=== PATIENT | female | born 1985 | race Caucasian/White ===

== ENCOUNTER 2017-03-16 21:02 | Emergency (ER) | payer OTHER ==
[2017-03-16 21:28] VITALS: BP 121/83; PULSE 100; TEMP 98.5; BMI 34.3
[2017-03-16 22:02] LABS: URINE APPEARANCE CLEAR; URINE BILIRUBIN NEGATIVE (NEGATIVE); URINE BLOOD 1+ (NEGATIVE); URINE COLOR COLORLESS; URINE GLUCOSE (UA) 3+ (NEGATIVE); URINE KETONE NEGATIVE (NEGATIVE); URINE NITRITE NEGATIVE (NEGATIVE); URINE PROTEIN NEGATIVE (NEGATIVE); URINE UROBILINOGEN NEGATIVE mg/dL (0.2-1.0)
[2017-03-16 22:04] LABS: URINE LEUK ESTERASE 2+ (NEGATIVE)
[2017-03-16 22:08] LABS: URINE BACTERIA FEW /hpf (NONE SEEN); URINE MUCUS RARE; URINE RBC 3 /hpf (0-3); URINE WBC 6 /hpf (3-5)
[2017-03-16] MEDS ORDERED: KETOROLAC TROMETHAMINE 30 MG/1 ML VIAL IVPUSH ONE (22:37)
[2017-03-16] MEDS ORDERED: KETOROLAC TROMETHAMINE 30 MG/1 ML VIAL ONE (23:15)
--- NOTE | 2017-03-16 23:30 | PDOC ---
History of Present Illness - General History Source: Patient Exam Limitations: No Limitations - History of Present Illness Initial Comments: 03/16/17 23:30 The patient is a 31 year old female, with a significant past medical history of diabetes mellitus, who presents to the emergency department complaining of lower abdominal pain and vaginal pruritus for approx. one week and dysuria beginning approx. 5 days ago. The patient reports the vaginal pruritus has been progressively worse. She states she purchased a cream from the pharmacy (unable to provide medication name) for self treatment of the vaginal pruritus with no relief. The patient reports her last menstrual period was the first week of February and she is currently late. She reports she is sexually active with her of four years and does not use contraceptives. The patient reports she has not been compliant with her diabetes medications. She denies recent fevers, chills, headache or dizziness. She denies recent nausea, vomit, diarrhea or constipation. She denies recent chest pain or shortness of breath. Allergies: NKA Primary Care Physician: Dr. Jaida Hutchins at [facility] P[facility]MASTER: Dr. [place] <Baldev Robles - Last Filed: 03/16/17 23:36> <Diallo Fortune - Last Filed: 03/17/17 00:07> - General Chief Complaint: Vaginal Sxs Stated Complaint: VAGINAL ISSUES Time Seen by Provider: 03/16/17 21:35 Past History <Baldev Robles - Last Filed: 03/16/17 23:36> - Past Medical History Diabetes: Yes - Surgical History Appendectomy: Yes - Psycho/Social/Smoking Cessation Hx Anxiety: No Suicidal Ideation: No Smoking History: Never smoked Have you smoked in the past 12 months: No Information on smoking cessation initiated: No Hx Alcohol Use: No Drug/Substance Use Hx: No Substance Use Type: None <Diallo Fortune - Last Filed: 03/17/17 00:07> - Past Medical History Allergies/Adverse Reactions: Allergies Allergy/AdvReac Type Severity Reaction Status Date / Time No Known Allergies Allergy Verified 03/16/17 21:28 Home Medications: Ambulatory Orders Miconazole/Cleanser 17 On Wipe [Monistat 7 Combination Pack] 1 each VG DAILY #1 kit 03/17/17 Review of Systems - Review of Systems Comments:: 03/16/17 23:30 CONSTITUTIONAL: No fever, no chills, no fatigue EYES: No visual changes ENT: No ear pain, no sore throat CARDIOVASCULAR: No chest pain, no palpitations RESPIRATORY: No cough, no SOB GI:+Lower abdominal pain. No nausea, no vomiting, no constipation, no diarrhea GENITOURINARY: +Dysuria. +Vaginal itchiness. No hematuria MUSKULOSKELETAL: No backpain, no joint pain, no myalgias SKIN: No rash NEURO: No headache <Baldev Robles - Last Filed: 03/16/17 23:36> *Physical Exam - Vital Signs Last Vital Signs Temp Pulse Resp BP Pulse Ox 98.5 F 100 H 18 121/83 100 03/16/17 21:25 03/16/17 21:25 03/16/17 21:25 03/16/17 21:25 03/16/17 21:25 <Baldev Robles - Last Filed: 03/16/17 23:36> - Vital Signs Last Vital Signs Temp Pulse Resp BP Pulse Ox 98.5 F 100 H 18 121/83 100 03/16/17 21:25 03/16/17 21:25 03/16/17 21:25 03/16/17 21:25 03/16/17 21:25 - Physical Exam Comments: 03/17/17 00:05 EXAMINATION CONSTITUTIONAL: Well-appearing; well-nourished; in no apparent distress HEAD: Normocephalic; atraumatic EYES: PERRL; EOM intact ENMT: External appears normal; normal oropharynx NECK: Supple; non-tender; no cervical lymphadenopathy CARD: Normal S1, S2; no murmurs, rubs, or gallops RESP: Normal chest excursion with respiration; breath sounds clear and equal bilaterally; no wheezes, rhonchi, or rales ABD: Soft, non-distended; non-tender; no palpable organomegaly, no palpable hernias PE: + Numerous excoriated fissure-like lesions to the labia minora and majora; + large amount of white discharge in the vaginal vault consistent with vaginal candidiasis; no CMT; EXT: Normal ROM in all four extremities; non-tender to palpation; distal pulses intact SKIN: Warm, dry, no rash NEURO: No focal neurological deficiencies. <Diallo Fortune - Last Filed: 03/17/17 00:07> ED Treatment Course - ADDITIONAL ORDERS Additional order review: Laboratory Results 03/16/17 21:47 Urine Color Colorless Urine Appearance Clear Urine pH 5.0 Urine Protein Negative Urine Glucose (UA) 3+ H Urine Ketones Negative Urine Blood 1+ H Urine Nitrite Negative Urine Bilirubin Negative Urine Urobilinogen Negative Ur Leukocyte Esterase 2+ H Urine RBC 3 Urine WBC 6 Ur Epithelial Cells Rare Urine Bacteria Few Urine Mucus Rare Urine HCG, Qual Negative - Medications Given in the ED: ED Medications Discontinued Medications Generic Name Dose Route Start Last Admin Trade Name Freq PRN Reason Stop Dose Admin Ketorolac Tromethamine 30 mg 03/16/17 22:37 03/16/17 23:28 Toradol Injection - IVPUSH 03/16/17 22:38 30 mg ONCE ONE Administration <Baldev Robles - Last Filed: 03/16/17 23:36> - ADDITIONAL ORDERS Additional order review: Laboratory Results 03/16/17 21:47 Urine Color Colorless Urine Appearance Clear Urine pH 5.0 Urine Protein Negative Urine Glucose (UA) 3+ H Urine Ketones Negative Urine Blood 1+ H Urine Nitrite Negative Urine Bilirubin Negative Urine Urobilinogen Negative Ur Leukocyte Esterase 2+ H Urine RBC 3 Urine WBC 6 Ur Epithelial Cells Rare Urine Bacteria Few Urine Mucus Rare Urine HCG, Qual Negative - Medications Given in the ED: ED Medications Discontinued Medications Generic Name Dose Route Start Last Admin Trade Name Freq PRN Reason Stop Dose Admin Ketorolac Tromethamine 30 mg 03/16/17 22:37 03/16/17 23:28 Toradol Injection - IVPUSH 03/16/17 22:38 30 mg ONCE ONE Administration <Diallo Fortune - Last Filed: 03/17/17 00:07> Medical Decision Making - Medical Decision Making 03/17/17 00:07 Patient is well-appearing 31-year-old female who presents with signs and symptoms of acute vaginal candidiasis. Vaginal herpes is a lot less likely. Serial abdominal exams reveal no focal tenderness, patient tolerates by mouth. We'll administer Toradol for symptomatic relief of lower abdominal cramping. Will discharge with Monistat with outpatient follow-up. <Diallo Fortune - Last Filed: 03/17/17 00:07> *DC/Admit/Observation/Transfer - Attestations Scribe Attestion: 03/16/17 23:31 Documentation prepared by Baldev Robles, acting as medical secretary receptionist for Diallo Fortune MD. <Baldev Robles - Last Filed: 03/16/17 23:36> - Attestations Physician Attestion: 03/17/17 00:05 The documentation was prepared by the scribe under my direct supervision. I have reviewed the documentation which correctly represents the findings, medical decision-making and critical action taken by me. <Diallo Fortune - Last Filed: 03/17/17 00:07> Diagnosis at time of Disposition: Vaginal candidiasis - Discharge Dispostion Disposition: HOME Condition at time of disposition: Stable - Prescriptions Prescriptions: Miconazole/Cleanser 17 On Wipe [Monistat 7 Combination Pack] 1 each VG DAILY #1 kit - Referrals Referrals: STAFF,NOT ON [Primary Care Provider] - [facility] [Provider Group] - Patient Instructions Printed Discharge Instructions: DI for Vaginal Yeast Infection
== END 2017-03-17 00:45 | disposition home or self-care (01) ==
LOC: SUPCPDRO 21:02 → JER 21:02
PROC: 3E0333Z Introduction of Anti-inflammatory into Peripheral Vein, Percutaneous Approach (ICD-10-PCS; principal; 2017-03-16)
DX: B37.3 Candidiasis of vulva and vagina (principal)
CPT/HCPCS: 81003; 81015; 84703; 87086; 87186; 99282-25

== ENCOUNTER 2017-08-10 03:34 | Emergency (ER) | payer OTHER ==
[2017-08-10 04:16] VITALS: BMI 29.2
[2017-08-10] MEDS ORDERED: SODIUM CHLORIDE 1,000 ML IV STA (04:34)
[2017-08-10] MEDS ORDERED: ONDANSETRON 4 MG/2 ML VIAL IVPB ONE (04:34)
[2017-08-10] MEDS ORDERED: morphine CARPU-JECT 4 MG/1 ML DISP.SYRIN IVPUSH ONE (04:34)
--- NOTE | 2017-08-10 04:43 | PDOC ---
History of Present Illness - History of Present Illness Initial Comments: 08/10/17 05:01 The patient is a 32 year old female, with a significant past medical history of diabetes mellitus, obesity, who presents to the emergency department with, approx. 2 days of diffuse abdominal pain. The patient reports the diffuse abdominal pain as intermittent and reports associated diarrhea and vomiting. The patient reports taking Tylenol for the diffuse abdominal pain with mild relief. The patient reports the diffuse abdominal pain has been progressively getting worse up until arrival. She denies recent fevers, chills, headache or dizziness. She denies recent constipation. She denies recent dysuria, frequency, urgency or hematuria. She denies recent chest pain or shortness of breath. Allergies: NKA Past surgical history: Gastric Bypass Social history: Nonsmoker. Denies EtOH use and recreational drug use. Primary Care Physician: Dr. Ginger Hutchins <Baldev Robles - Last Filed: 08/10/17 05:00> - General History Source: Patient, Old Records Exam Limitations: No Limitations <Stan Aguila - Last Filed: 08/10/17 06:56> - General Chief Complaint: Nausea/Vomiting Stated Complaint: STOMACH PAIN Time Seen by Provider: 08/10/17 04:33 Past History <Baldev Robles - Last Filed: 08/10/17 05:00> - Past Medical History COPD: No Diabetes: Yes - Surgical History Appendectomy: Yes - Reproductive History Therapeutic (s) & number: No - Suicide/Smoking/Psychosocial Hx Smoking History: Never smoked Have you smoked in the past 12 months: No Hx Alcohol Use: No Drug/Substance Use Hx: No Substance Use Type: None <Stan Aguila - Last Filed: 08/10/17 06:56> - Past Medical History Allergies/Adverse Reactions: Allergies Allergy/AdvReac Type Severity Reaction Status Date / Time No Known Allergies Allergy Verified 03/16/17 21:28 Home Medications: Ambulatory Orders Acetaminophen [Tylenol] 650 mg PO PRN 03/17/17 Canagliflozin [Invokana] 100 mg PO DAILY 08/10/17 Lisinopril 10 mg PO DAILY 08/10/17 Metformin HCl [Glucophage] 1,000 mg PO DAILY 08/10/17 Review of Systems - Review of Systems Comments:: 08/10/17 05:05 GENERAL/CONSTITUTIONAL: No fever or chills. No weakness. HEAD, EYES, EARS, NOSE AND THROAT: No change in vision. No ear pain or discharge. No sore throat. CARDIOVASCULAR: No chest pain or shortness of breath. RESPIRATORY: No cough, wheezing, or hemoptysis. GASTROINTESTINAL: +Diffuse abdominal pain. +Nausea. +Vomiting. +Diarrhea. GENITOURINARY: No dysuria, frequency, or change in urination. MUSCULOSKELETAL: No joint or muscle swelling or pain. No neck or back pain. SKIN: No rash NEUROLOGIC: No headache, vertigo, loss of consciousness, or change in strength/ sensation. ENDOCRINE: No increased thirst. No abnormal weight change. HEMATOLOGIC/LYMPHATIC: No anemia, easy bleeding, or history of blood clots. ALLERGIC/IMMUNOLOGIC: No hives or skin allergy. <Baldev Robles - Last Filed: 08/10/17 05:00> *Physical Exam - Vital Signs Last Vital Signs Temp Pulse Resp BP Pulse Ox 98.2 F 76 19 138/85 99 08/10/17 03:54 08/10/17 03:54 08/10/17 03:54 08/10/17 03:54 08/10/17 03:54 - Physical Exam Comments: 08/10/17 05:06 GENERAL: Awake, alert, and fully oriented, in no acute distress HEAD: No signs of trauma EYES: PERRLA, EOMI, sclera anicteric, conjunctiva clear ENT: Auricles normal inspection, hearing grossly normal, nares patent, oropharynx clear without exudates. Moist mucosa NECK: Normal ROM, supple, no lymphadenopathy, JVD, or masses LUNGS: Breath sounds equal, clear to auscultation bilaterally. No wheezes, and no crackles HEART: Regular rate and rhythm, normal S1 and S2, no murmurs, rubs or gallops ABDOMEN: +Diffusely tender but worse at the epigastric region. Soft, normoactive bowel sounds. No guarding, no rebound. No masses EXTREMITIES: Normal range of motion, no edema. No clubbing or cyanosis. No cords, erythema, or tenderness NEUROLOGICAL: Cranial nerves II through XII grossly intact. Normal speech, normal gait SKIN: Warm, Dry, normal turgor, no rashes or lesions noted. <Baldev Robles - Shivam Filed: 08/10/17 05:00> - Vital Signs Last Vital Signs Temp Pulse Resp BP Pulse Ox 98.2 F 76 19 138/85 99 08/10/17 03:54 08/10/17 03:54 08/10/17 03:54 08/10/17 03:54 08/10/17 03:54 <AylaStan - Last Filed: 08/10/17 06:56> ED Treatment Course - LABORATORY CBC & Chemistry Diagram: 08/10/17 04:48 08/10/17 04:48 - RADIOLOGY Radiology Studies Ordered: Category Date Time Status ABDOMEN & PELVIS CT WITH CONTR [CT] Stat CT Scan 08/10/17 04:34 Ordered <Stan Aguila - Last Filed: 08/10/17 06:56> Medical Decision Making - Medical Decision Making 08/10/17 04:43 A portion of this note was documented by scribe services under my direction. I have reviewed the details of the note, within reason, and agree with the documentation with the following case summary and management plan written by me. Patient treated in the ED. Nursing notes are reviewed and incorporated into the medical decision-making. Vital signs reviewed. Peripheral IV access obtained by the nurse, laboratory studies are drawn and sent, reviewed and interpreted by myself. Vital Signs Temp Pulse Resp BP Pulse Ox 98.2 F 76 19 138/85 99 08/10/17 03:54 08/10/17 03:54 08/10/17 03:54 08/10/17 03:54 08/10/17 03:54 32-year-old female with past medical history of diabetes, obesity, gastric bypass approximately 3 weeks ago at [facility] presents with diffuse abdominal pain for 2 days. Patient started developing epigastric abdominal discomfort that was intermittent and associated with diarrhea and vomiting. Diarrhea resolved but the nausea persisted. States that her pain is progressively worsening despite taking Tylenol and codeine. Denies fevers or chills but stated the pain was worsening and came to the ED. Given her history of gastric bypass, we'll need to rule out complications. Within differential is gastroenteritis, pancreatitis, cholecystitis. We'll obtain labs and a CAT scan and reassess. 08/10/17 06:32 CBC, BMP 08/10/17 04:48 08/10/17 04:48 CMP Sodium 139 mmol/L (136-145) 08/10/17 04:48 Potassium 4.0 mmol/L (3.5-5.1) 08/10/17 04:48 Chloride 106 mmol/L (98-107) 08/10/17 04:48 Carbon Dioxide 22 mmol/L (21-32) 08/10/17 04:48 Anion Gap 11 (8-16) 08/10/17 04:48 BUN 14 mg/dL (7-18) 08/10/17 04:48 Creatinine 0.6 mg/dL (0.55-1.02) 08/10/17 04:48 Creat Clearance w eGFR > 60 (>60) 08/10/17 04:48 Random Glucose 157 mg/dL (74-106) H 08/10/17 04:48 Calcium 9.2 mg/dL (8.5-10.1) 08/10/17 04:48 Phosphorus 4.8 mg/dL (2.5-4.9) 08/10/17 04:48 Magnesium 2.1 mg/dL (1.8-2.4) 08/10/17 04:48 Total Bilirubin 0.2 mg/dL (0.2-1.0) 08/10/17 04:48 AST 18 U/L (15-37) 08/10/17 04:48 ALT 34 U/L (12-78) 08/10/17 04:48 Alkaline Phosphatase 113 U/L (45-117) 08/10/17 04:48 Total Protein 7.6 g/dl (6.4-8.2) 08/10/17 04:48 Albumin 3.8 g/dl (3.4-5.0) 08/10/17 04:48 Lipase 144 U/L (73-393) 08/10/17 04:48 Serum , Qual Negative 08/10/17 04:48 Urine Test Results Urine Color Yellow 08/10/17 05:00 Urine Appearance Slcloudy 08/10/17 05:00 Urine pH 5.0 (5.0-8.0) 08/10/17 05:00 Ur Specific [place] 1.038 (1.001-1.035) H 08/10/17 05:00 Urine Protein 2+ (NEGATIVE) H 08/10/17 05:00 Urine Glucose (UA) 3+ (NEGATIVE) H 08/10/17 05:00 Urine Ketones Trace (NEGATIVE) H 08/10/17 05:00 Urine Blood Negative (NEGATIVE) 08/10/17 05:00 Urine Nitrite Positive (NEGATIVE) 08/10/17 05:00 Urine Bilirubin Negative (NEGATIVE) 08/10/17 05:00 Ur Leukocyte Esterase Negative (NEGATIVE) 08/10/17 05:00 Ur Epithelial Cells Many /HPF (FEW) 08/10/17 05:00 Urine Bacteria Rare /hpf (NONE SEEN) 08/10/17 05:00 Urine Mucus Rare 08/10/17 05:00 Labs reviewed. Demonstrated to have a UTI. Microbiology reviewed. Will give ceftriaxone. 08/10/17 06:56 Case signed out to Dr. Lin for further management and disposition. <Stan Aguila - Last Filed: 08/10/17 06:56> *DC/Admit/Observation/Transfer - Attestations Scribe Attestion: 08/10/17 05:07 Documentation prepared by Baldev Robles, acting as medical biller for Stan Aguila MD. <Baldev Robles - Last Filed: 08/10/17 05:00>
[2017-08-10] MEDS ORDERED: MORPHINE SULFATE 10 MG/1 ML *VIAL ONE (04:54)
[2017-08-10] MEDS ORDERED: ONDANSETRON 4 MG/2 ML VIAL ONE (04:56)
[2017-08-10 05:19] LABS: BASO % 0.5 % (0-2.0); EOS % 3.6 % (0-4.5); HEMATOCRIT 42.7 % (32.4-45.2); HEMOGLOBIN 13.6 GM/dL (10.7-15.3); LYMPH % 26.3 % (8-40); MCH 24.4 pg (25.7-33.7); MEAN CELL VOLUME 76.2 fl (80-96); MEAN PLT VOLUME 10.9 fl (7.5-11.1); MONO % 5.5 % (3.8-10.2); NEUT % 64.1 % (42.8-82.8); PLATELET COUNT 314 K/MM3 (134-434); RDW 14.3 % (11.6-15.6); WHITE BLOOD COUNT 10.2 K/mm3 (4.0-10.0)
[2017-08-10 05:21] LABS: URINE APPEARANCE SLCLOUDY; URINE BILIRUBIN NEGATIVE (NEGATIVE); URINE BLOOD NEGATIVE (NEGATIVE); URINE COLOR YELLOW; URINE GLUCOSE (UA) 3+ (NEGATIVE); URINE KETONE TRACE (NEGATIVE); URINE LEUK ESTERASE NEGATIVE (NEGATIVE); URINE NITRITE POSITIVE (NEGATIVE); URINE UROBILINOGEN NEGATIVE mg/dL (0.2-1.0)
[2017-08-10 05:23] LABS: URINE PROTEIN 2+ (NEGATIVE)
[2017-08-10 05:24] LABS: EPI CELLS MANY /HPF (FEW); URINE BACTERIA RARE /hpf (NONE SEEN); URINE MUCUS RARE
[2017-08-10 05:42] LABS: ALBUMIN 3.8 g/dl (3.4-5.0); ALK PHOS 113 U/L (45-117); ANION GAP 11 (8-16); BILIRUBIN,TOTAL 0.2 mg/dL (0.2-1.0); BLOOD UREA NITROGEN 14 mg/dL (7-18); CALCIUM 9.2 mg/dL (8.5-10.1); CHLORIDE 106 mmol/L (98-107); CO2 22 mmol/L (21-32); CREATININE 0.6 mg/dL (0.55-1.02); GLUCOSE,RANDOM 157 mg/dL (74-106); LIPASE 144 U/L (73-393); PHOSPHOROUS 4.8 mg/dL (2.5-4.9); SGPT/ALT 34 U/L (12-78); SODIUM 139 mmol/L (136-145); TOT PROT 7.6 g/dl (6.4-8.2)
[2017-08-10 05:47] LABS: MAGNESIUM 2.1 mg/dL (1.8-2.4); SGOT/AST 18 U/L (15-37)
[2017-08-10] MEDS ORDERED: CEFTRIAXONE 1 GM in DEXTROSE 5%-WATER - 50 ML IVPB ONE (06:34)
[2017-08-10] MEDS ORDERED: CEFTRIAXONE 1 GM/50 ML BAG ONE (06:39)
[2017-08-10 07:33] VITALS: TEMP 98.4
--- NOTE | 2017-08-10 10:07 | PDOC ---
*Physical Exam - Vital Signs Last Vital Signs Temp Pulse Resp BP Pulse Ox 98.4 F 60 18 118/66 99 08/10/17 07:29 08/10/17 07:29 08/10/17 07:29 08/10/17 07:29 08/10/17 07:29 - Physical Exam Comments: 08/10/17 10:02 "GENERAL: Awake, alert, and fully oriented, in no acute distress HEAD: No signs of trauma EYES: PERRLA, EOMI, sclera anicteric, conjunctiva clear ENT: Auricles normal inspection, hearing grossly normal, nares patent, oropharynx clear without exudates. Moist mucosa NECK: Nontender, no stepoffs, Normal ROM, supple, no lymphadenopathy, JVD, or masses LUNGS: Breath sounds equal, clear to auscultation bilaterally. No wheezes, and no crackles HEART: Regular rate and rhythm, normal S1 and S2, no murmurs, rubs or gallops ABDOMEN: Soft, nontender, normoactive bowel sounds. No guarding, no rebound. No masses EXTREMITIES: Normal range of motion, no edema. No clubbing or cyanosis. No cords, erythema, or tenderness NEUROLOGICAL: Cranial nerves II through XII intact. 5/5 strength and sensation in all extremities, Normal speech, normal gait SKIN: Warm, Dry, normal turgor, no rashes or lesions noted. " ED Treatment Course - LABORATORY CBC & Chemistry Diagram: 08/10/17 04:48 08/10/17 04:48 - ADDITIONAL ORDERS Additional order review: Laboratory Results 08/10/17 08/10/17 08/10/17 05:00 04:48 04:48 Sodium 139 Potassium 4.0 Chloride 106 Carbon Dioxide 22 Anion Gap 11 BUN 14 Creatinine 0.6 Creat Clearance w eGFR > 60 Random Glucose 157 H Calcium 9.2 Phosphorus 4.8 Magnesium 2.1 Total Bilirubin 0.2 AST 18 ALT 34 Alkaline Phosphatase 113 Total Protein 7.6 Albumin 3.8 Lipase 144 Serum , Qual Negative Urine Color Yellow Urine Appearance Slcloudy Urine pH 5.0 Ur Specific [place] 1.038 H Urine Protein 2+ H Urine Glucose (UA) 3+ H Urine Ketones Trace H Urine Blood Negative Urine Nitrite Positive Urine Bilirubin Negative Urine Urobilinogen Negative Ur Leukocyte Esterase Negative Urine WBC (Auto) 12 Urine RBC (Auto) 6 Ur Epithelial Cells Many Urine Bacteria Rare Urine Mucus Rare 02/02/18 04:48 RBC 5.60 H MCV 76.2 L MCHC 32.0 RDW 14.3 MPV 10.9 Neutrophils % 64.1 Lymphocytes % 26.3 Monocytes % 5.5 Eosinophils % 3.6 Basophils % 0.5 - Medications Given in the ED: ED Medications Discontinued Medications Generic Name Dose Route Start Last Admin Trade Name Freq PRN Reason Stop Dose Admin Sodium Chloride 1,000 mls @ 1,000 mls/hr 08/10/17 04:34 08/10/17 05:06 Normal Saline - IV 08/10/17 05:33 1,000 mls/hr ASDIR STA Administration Ceftriaxone Sodium 1 gm/ 50 mls @ 100 mls/hr 08/10/17 06:34 08/10/17 06:42 Dextrose IVPB 08/10/17 07:03 100 mls/hr ONCE ONE Administration Morphine Sulfate 4 mg 08/10/17 04:34 08/10/17 05:06 Morphine Injection - IVPUSH 08/10/17 04:35 4 mg ONCE ONE Administration Ondansetron HCl 4 mg 08/10/17 04:34 08/10/17 05:06 Zofran Injection IVPB 08/10/17 04:35 4 mg ONCE ONE Administration Medical Decision Making - Medical Decision Making 08/10/17 10:02 Sign out taken from Dr. Aguila at 7am. 32 F with recent gastric bypass 07/18/17, presenting with abdominal pain. CT shows no acute pathology. Pt reassessed - feels somewhat better, tolerating PO. Abdomen with minimal periumbilical tenderness. pt is well appearing, vitals normal, clinically stable for DC. I discussed the physical exam findings, ancillary test results and final diagnoses with the patient. I answered all of the patient's questions. The patient was satisfied with the care received and felt comfortable with the discharge plan and treatment plan. The patient agrees to follow up with the primary care physician within 24-72 hours. *DC/Admit/Observation/Transfer Diagnosis at time of Disposition: Abdominal pain - Discharge Dispostion Disposition: HOME - Prescriptions Prescriptions: Acetaminophen W/ Codeine Liq [Tylenol .W/Codeine Oral Solution -] 5 ml PO Q4H PRN #120 ml MDD 30 ml PRN Reason: Pain - Referrals - Patient Instructions Printed Discharge Instructions: DI for Abdominal Pain-Adult Additional Instructions: Call your surgeon today to make a follow up appointment within 1 week. If you experience worsening pain, fevers, vomiting, or any other concerning symptoms, return to the ER immediately. - Post Discharge Activity - Attestations Physician Attestion: 08/10/17 10:04 I, Dr. Garth Lin MD, attest that this document has been prepared under my direction and personally reviewed by me in its entirety. I further attest, that it accurately reflects all work, treatment, procedures and medical decision -making performed by me.
[2017-08-10] MEDS ORDERED: ACETAMINOPHEN W/ CODEINE LIQ 5 ML CUP PO ONE (10:28)
[2017-08-10] MEDS ORDERED: ACETAMINOPHEN W/ CODEINE LIQ 5 ML CUP ONE (10:30)
[2017-08-10 10:36] VITALS: BP 120/56; PULSE 62
--- NOTE | 2017-08-12 08:27 | PDOC ---
Patient Follow-up (Call Back) - Post ED Follow - Up Disposition at time of original discharge: HOME Reason for Call Back: Abnwl. Microbiology (Urine culture on preliminary results with non-lactose fermenting GNB. Patient was given a dose of IV ceftriaxone in the ER on the second. Patient with positive UA and is a diabetic. Left message for patient to call back to start antibiotics.)
--- NOTE | 2017-08-13 09:47 | PDOC ---
Patient Follow-up (Call Back) - Post ED Follow - Up Disposition at time of original discharge: HOME Reason for Call Back: Abnwl. Microbiology (+urine culture. Spoke with patient. Sending rx for macrobid)
== END 2017-08-10 10:36 | disposition home or self-care (01) ==
LOC: JER 03:34
PROC: 3E03329 Introduction of Other Anti-infective into Peripheral Vein, Percutaneous Approach (ICD-10-PCS; principal; 2017-08-10)
PROC: 3E033NZ Introduction of Analgesics, Hypnotics, Sedatives into Peripheral Vein, Percutaneous Approach (ICD-10-PCS; 2017-08-10)
PROC: 3E033GC Introduction of Other Therapeutic Substance into Peripheral Vein, Percutaneous Approach (ICD-10-PCS; 2017-08-10)
PROC: 3E0337Z Introduction of Electrolytic and Water Balance Substance into Peripheral Vein, Percutaneous Approach (ICD-10-PCS; 2017-08-10)
DX: R10.84 Generalized abdominal pain (principal)
CPT/HCPCS: 36415; 74177-TC; 80053; 81003; 81015; 83690; 83735; 84100; 84703; 85025; 87086; 87186; 96361; 96365; 96375; 99285-25

== ENCOUNTER 2018-08-19 14:43 | Emergency (ER) | payer OTHER ==
[2018-08-19 15:17] VITALS: BMI 26.6
[2018-08-19] MEDS ORDERED: ACETAMINOPHEN 325 MG TABLET (FP) PO ONE (15:18)
[2018-08-19] MEDS ORDERED: METOCLOPRAMIDE HCL INJECTION 10 MG/2 ML VIAL IVPB ONE (15:18)
[2018-08-19] MEDS ORDERED: SODIUM CHLORIDE 1,000 ML IV STA (15:18)
--- NOTE | 2018-08-19 15:18 | PDOC ---
Rapid Medical Evaluation Medical Evaluation: Allergies Allergy/AdvReac Type Severity Reaction Status Date / Time No Known Allergies Allergy Verified 03/16/17 21:28 I have performed a brief in-person evaluation of this patient. The patient presents with a chief complaint of: Hx of DMl C/o headache x 2 days along with body aches, has been taking Tylenol without relief of sxs; +emesis as well; denies URI sxs, congestion, fever; mentions has been having HAs x 5 months but has not had them evaluated; noise makes CORRALES worse Pertinent physical exam findings: In NAD, no gross focal deficits I have ordered the following: Tylenol, Reglan, IVF, UCG The patient will proceed to the ED for further evaluation. 08/19/18 15:12
[2018-08-19] MEDS ORDERED: ACETAMINOPHEN 325 MG TABLET (FP) ONE (15:27)
--- NOTE | 2018-08-19 17:04 | PDOC ---
History of Present Illness - General Chief Complaint: Headache Stated Complaint: COLD SYMPTOMS Time Seen by Provider: 08/19/18 15:12 History Source: Patient Exam Limitations: No Limitations - History of Present Illness Initial Comments: 08/19/18 16:56 Patient is a 33F with history of migraines, DM, gastric bypass here today complaining of headache for the past two days. Patient states that she has been struggling with headaches for the past 5 months. She had a workup for headaches in the distant past for headaches and was told she had migraines. Patient describes her headache as a pain around her right eye and right aspect of her head. It onset insidiously. Denies fevers, chills, endorses nausea, vomiting. Denies neck stiffness. Patient states that she feels a little short of breath and overall week. Denies leg pain, leg swelling. Patient gives vague history of anemia. Past History - Past Medical History Allergies/Adverse Reactions: Allergies Allergy/AdvReac Type Severity Reaction Status Date / Time No Known Allergies Allergy Verified 03/16/17 21:28 Home Medications: Ambulatory Orders Acetaminophen [Tylenol] 650 mg PO PRN 03/17/17 Acetaminophen W/ Codeine Liq [Tylenol .W/Codeine Oral Solution -] 5 ml PO Q4H PRN #120 ml MDD 30 ml 08/10/17 Canagliflozin [Invokana] 100 mg PO DAILY 08/10/17 Lisinopril 10 mg PO DAILY 08/10/17 Metformin HCl [Glucophage] 1,000 mg PO DAILY 08/10/17 Nitrofurantoin Monohyd/M-Cryst [Macrobid -] 100 mg PO BID #14 capsule 08/13/17 COPD: No Diabetes: Yes - Surgical History Appendectomy: Yes - Reproductive History Therapeutic (s) & number: No - Immunization History Immunization Up to Date: No - Suicide/Smoking/Psychosocial Hx Smoking History: Never smoked Have you smoked in the past 12 months: No Information on smoking cessation initiated: No Hx Alcohol Use: No Drug/Substance Use Hx: No Substance Use Type: None Review of Systems - Review of Systems Comments:: 08/19/18 17:04 GENERAL/CONSTITUTIONAL: No fever or chills. No weakness. HEAD, EYES, EARS, NOSE AND THROAT: No change in vision. No sore throat. CARDIOVASCULAR: No chest pain or shortness of breath RESPIRATORY: No cough, wheezing, or hemoptysis. GASTROINTESTINAL: +nausea, +vomiting, no diarrhea or constipation. GENITOURINARY: No dysuria, frequency, or change in urination. MUSCULOSKELETAL: No joint or muscle swelling or pain. No neck or back pain. SKIN: No rash NEUROLOGIC: +headache, no vertigo, loss of consciousness, or change in strength/ sensation. ENDOCRINE: No increased thirst. No abnormal weight change HEMATOLOGIC/LYMPHATIC: No anemia, easy bleeding, or history of blood clots. ALLERGIC/IMMUNOLOGIC: No hives or skin allergy. *Physical Exam - Vital Signs Last Vital Signs Temp Pulse Resp BP Pulse Ox 98.1 F 93 H 18 124/80 97 08/19/18 15:14 08/19/18 15:14 08/19/18 15:14 08/19/18 15:14 08/19/18 15:14 - Physical Exam Comments: 08/19/18 17:06 GENERAL: Awake, alert, and fully oriented, in no acute distress HEAD: No signs of trauma, normocephalic, atraumatic EYES: PERRLA, EOMI, sclera anicteric, conjunctiva clear ENT: Auricles normal inspection, hearing grossly normal, nares patent, oropharynx clear without exudates. Moist mucosa NECK: Normal ROM, supple, no lymphadenopathy, JVD, or masses LUNGS: No distress, speaks full sentences, clear to auscultation bilaterally HEART: Regular rate and rhythm, normal S1 and S2, no murmurs, rubs or gallops, peripheral pulses normal and equal bilaterally. ABDOMEN: Soft, nontender, normoactive bowel sounds. No guarding, no rebound. No masses EXTREMITIES: Normal inspection, Normal range of motion, no edema. No clubbing or cyanosis. NEUROLOGICAL: Cranial nerves II through XII grossly intact. Normal speech, normal gait, no focal sensorimotor deficits SKIN: Warm, Dry, normal turgor, no rashes or lesions noted. Moderate Sedation - Procedure Monitoring Vital Signs: Procedure Monitoring Vital Signs Temperature 98.1 F 08/19/18 15:14 Pulse Rate 93 H 08/19/18 15:14 Respiratory Rate 18 08/19/18 15:14 Blood Pressure 124/80 08/19/18 15:14 O2 Sat by Pulse Oximetry (%) 97 08/19/18 15:14 ED Treatment Course - LABORATORY CBC & Chemistry Diagram: 08/19/18 17:19 08/19/18 17:19 - ADDITIONAL ORDERS Additional order review: Laboratory Results 08/19/18 15:36 Urine HCG, Qual Negative - Medications Given in the ED: ED Medications Discontinued Medications Generic Name Dose Route Start Last Admin Trade Name Jaswant PRN Reason Stop Dose Admin Acetaminophen 650 mg 08/19/18 15:18 08/19/18 15:31 Tylenol - PO 08/19/18 15:19 650 mg ONCE ONE Administration Medical Decision Making - Medical Decision Making 08/19/18 17:06 Patient is 33F with history of DM, sleeve, migraines here today with headache. Vitals normal and stable. Patient appears well clinically. Will treat with reglan, fluids and tylenol. Patient reports history of anemia, will do basic labs. Do not suspect bleed or mass given history and exam. Likely discharge, follow up with neurology. 08/19/18 18:25 CBC, CMP reassuring. Headache improved. Will discharge with neuro follow up. *DC/Admit/Observation/Transfer Diagnosis at time of Disposition: Migraine headache - Discharge Dispostion Disposition: HOME Condition at time of disposition: Good Decision to Admit order: No - Referrals Referrals: ON STAFF,NOT [Primary Care Provider] - Price Kong MD [Staff Physician] - - Patient Instructions Printed Discharge Instructions: DI for Migraine Additional Instructions: Please start using a diary to keep track of your headaches. Please return if you have any new, worsening or concerning symptoms, especially fever and increasing pain. Please follow up with your PCP and the neurologist below. - Post Discharge Activity Forms/Work/School Notes: Back to Work
[2018-08-19] MEDS ORDERED: METOCLOPRAMIDE HCL INJECTION 10 MG/2 ML VIAL ONE (17:14)
[2018-08-19 17:43] LABS: HEMATOCRIT 32.8 % (32.4-45.2); HEMOGLOBIN 10.3 GM/dL (10.7-15.3); MCHC 31.4 g/dl (32.0-36.0); MEAN CELL VOLUME 59.6 fl (80-96); MEAN PLT VOLUME 9.1 fl (7.5-11.1); PLATELET COUNT 394 K/MM3 (134-434); RBC 5.49 M/mm3 (3.60-5.2); RDW 18.2 % (11.6-15.6); WHITE BLOOD COUNT 12.3 K/mm3 (4.0-10.0)
[2018-08-19 18:04] LABS: MCH 18.7 pg (25.7-33.7)
--- NOTE | 2018-08-19 18:09 | PDOC ---
Attending Attestation - HPI HPI: 08/19/18 18:10 The patient is a 33 year old female with a past medical history of diabetes, gastric bypass (13 months ago), migraines here today for evaluation of headache. The patient reports that her symptoms began on 08/17/18 and notes associated nausea, vomiting, and general weakness. Patient denies lightheadedness. Denies fever, chills. Denies chest pain, shortness of breath. Denies diarrhea, abdominal pain. Allergies: NKA - Physicial Exam PE: 08/19/18 18:11 GENERAL: Well-appearing, well-nourished. No apparent distress. HEENT: Normocephalic, atraumatic. PERRL, EOM intact. CARDIOVASCULAR: Normal S1, S2. Regular rate and rhythm. PULMONARY: Clear to auscultation bilaterally. ABDOMEN: Soft, non-distended, non-tender. EXTREMITIES: Normal ROM in all four extremities. No gross deformities. SKIN: Warm, dry. No rash NEUROLOGICAL: No focal neurological deficits. <Ira Milian - Last Filed: 08/19/18 18:10> - Resident Resident Name: Aman Mariee - ED Attending Attestation I have performed the following: I have examined & evaluated the patient, The case was reviewed & discussed with the resident, I agree w/resident's findings & plan, Exceptions are as noted - Medical Decision Making 08/19/18 18:39 no fever,no visual changes,no focal neuro deficits pt told to followup with neurologist imp headache, improved plan further eval w neuro <Connie Newton - Last Filed: 08/19/18 18:40>
[2018-08-19 18:10] LABS: ALBUMIN 3.8 g/dl (3.4-5.0); ALK PHOS 159 U/L (45-117); ANION GAP 9 MMOL/L (8-16); BILIRUBIN,TOTAL 0.3 mg/dL (0.2-1); BLOOD UREA NITROGEN 19 mg/dL (7-18); CALCIUM 8.9 mg/dL (8.5-10.1); CHLORIDE 101 mmol/L (98-107); CO2 25 mmol/L (21-32); CREATININE 0.6 mg/dL (0.55-1.3); GLUCOSE,RANDOM 103 mg/dL (74-106); POTASSIUM 4.1 mmol/L (3.5-5.1); SGOT/AST 15 U/L (15-37); SGPT/ALT 23 U/L (13-61); SODIUM 135 mmol/L (136-145)
[2018-08-19 18:45] VITALS: BP 122/74; PULSE 84; TEMP 98
== END 2018-08-19 18:45 | disposition home or self-care (01) ==
LOC: JER 14:43
DX: G43.909 Migraine, unspecified, not intractable, without status migrainosus (principal); E11.9 Type 2 diabetes mellitus without complications; Z79.84 Long term (current) use of oral hypoglycemic drugs; Z98.84 Bariatric surgery status
CPT/HCPCS: 36415; 80053; 84703; 85027; 99283-25; J7030

== ENCOUNTER 2019-04-29 11:45 | Inpatient (IN) | payer OTHER ==
[~2019-04-29 11:45] MED LIST: CITRIC ACID/SODIUM CITRATE 30 ML UNIT-DOSE CUP PO ONE; ELECTROLYTE-148 SOLN 1,000 ML IV SCH
[2019-04-29 12:29] VITALS: BMI 33.3
--- NOTE | 2019-04-29 12:32 | CONSULT ---
Consult Consult Specialty:: Endocrine Reason for Consultation:: diabetes mellitus tT2. preop csection - History of Present Illness Chief Complaint: diabetes mellitus on insulin pump preop History of Present Illness: 33 y female pmh T2Dm,on insulin pump omni pod cgms system,using 2.4u/hr basal rate.preop csection,sp bariatric surgery,was on oral agents since start of has been on insulin,with good control last fbg was 84mg/dl,denies cp fever chill,nausea or vomiting. - Alcohol/Substance Use Hx Alcohol Use: No - Smoking History Smoking history: Never smoked Have you smoked in the past 12 months: No Home Medications - Allergies Allergies/Adverse Reactions: Allergies Allergy/AdvReac Type Severity Reaction Status Date / Time No Known Allergies Allergy Verified 04/29/19 12:10 - Home Medications Home Medications: Ambulatory Orders Ascorbic Acid [Vitamin C] 1,000 mg PO DAILY 04/10/19 Ferrous Sulfate [Iron] 1 tab PO DAILY 04/10/19 Insulin Pump Cartridge [Omnipod] SQ 04/10/19 Vit No.129/Iron/Folic [ One Daily Tablet] 1 tab PO DAILY Review of Systems - Review of Systems Constitutional: reports: No Symptoms Eyes: reports: No Symptoms HENT: reports: No Symptoms Neck: reports: No Symptoms Cardiovascular: reports: No Symptoms Respiratory: reports: No Symptoms Gastrointestinal: reports: No Symptoms Genitourinary: reports: No Symptoms Breasts: reports: No Symptoms Reported Musculoskeletal: reports: No Symptoms Integumentary: reports: No Symptoms Neurological: reports: No Symptoms Endocrine: reports: No Symptoms Physical Exam Constitutional: Yes: Well Nourished Eyes: Yes: WNL HENT: Yes: WNL Neck: Yes: WNL Cardiovascular: Yes: WNL Respiratory: Yes: WNL Gastrointestinal: Yes: WNL ...Rectal Exam: Yes: WNL Renal/: Yes: WNL Musculoskeletal: Yes: WNL Extremities: Yes: WNL Edema: No Neurological: Yes: Alert, Oriented Problem List - Problems (1) Diabetes mellitus affecting , antepartum Problems reviewed: Yes Assessment/Plan Diabetes mellitus T2 antepartum dc insulin pump stable for csection Laboratory Tests 08/19/18 02/24/19 04/14/19 17:19 16:22 11:21 Sodium Potassium Chloride Carbon Dioxide Anion Gap BUN Creatinine Creat Clearance w eGFR > 60 Est GFR (CKD-EPI)AfAm Est GFR (CKD-EPI)NonAf Hemoglobin A1c % 6.7 H C-Peptide 6.1 H 04/27/19 04/27/19 12:15 12:41 Sodium 140 Potassium 4.0 Chloride 108 H Carbon Dioxide 23 Anion Gap 8 BUN 14.8 Creatinine 0.5 L Creat Clearance w eGFR Est GFR (CKD-EPI)AfAm 147.38 Est GFR (CKD-EPI)NonAf 127.16 Hemoglobin A1c % C-Peptide plan bgm q4hrs novolog scale post op achs coverage
[2019-04-29] MEDS ORDERED: ELECTROLYTE-148 SOLN 1,000 ML IV SCH (12:45)
[2019-04-29] MEDS: INSULIN SLIDING SCALE (NOVOLOG) 1 VIAL SQ SCH ×3 (12:45→21:19)
[2019-04-29] MEDS ORDERED: OXYTOCIN 20 UNITS in 0.9% NS 40 UNIT/2,000 ML INFUS.BAG IV ONE (13:50)
[2019-04-29] MEDS ORDERED: ePHEDrine SULFATE 50 MG/1 ML AMPULE ONE (14:24)
[2019-04-29] MEDS ORDERED: morphine SULFATE/PF 0.5 MG/ML (2cc Syringe - QUVA) ONE (14:24)
[2019-04-29] MEDS ORDERED: ceFAZolin SODIUM 1 GM VIAL ONE (14:34)
[2019-04-29] MEDS ORDERED: LABETALOL HCL 5 MG/1 ML (100MG/20 ML VIAL) ONE (15:05)
[2019-04-29] MEDS ORDERED: SENNOSIDES/DOCUSATE COMBO (SENNA PLUS) TABLET (UD) PO PRN (15:59)
[2019-04-29] MEDS ORDERED: ONDANSETRON 4 MG/2 ML VIAL IVPUSH PRN (16:03)
[2019-04-29] MEDS ORDERED: FAMOTIDINE 10 MG TABLET PO PRN (16:06)
--- NOTE | 2019-04-29 16:44 | OP ---
DATE OF OPERATION: DATE OF DICTATION: 04/29/2019 DIAGNOSES: 1. Intrauterine early term. 2. Previous section. 3. Insulin-dependent diabetes mellitus. 4. Impending preeclampsia, proteinuria over 3 g for 24 hours. POSTOPERATIVE DIAGNOSES: 1. Intrauterine early term. 2. Previous section. 3. Insulin-dependent diabetes mellitus. 4. Impending preeclampsia, proteinuria over 3 g for 24 hours. 5. Omental adhesions. SURGEON: Adiel Campuzano MD TURN OPERATOR: BRIDGET Anand ANESTHESIA: Spinal. ANESTHESIOLOGIST: Jonathan Butt DO NEONATOLOGY: Milton Harrell MD DESCRIPTION OF PROCEDURE: Under excellent spinal block following routine prep and drape, incision was made in line with the previous scar. Incision was then carried through thick subcutaneous layer. Fascia was opened transversely, and recti muscles were dissected off the fascia. They were in the middle. Peritoneum was opened sharply and extended vertically. Adhesions between omentum and peritoneum were noted, and they were all released sharply and with Bovie. Term uterus with normal adnexa was noted. Bladder flap was opened and dissected off the lower uterine segment. Transverse uterine incision was placed and extended with bandage scissors. Amniotic fluid was noted to be clear. Baby's head was high and took a little bit extra effort to deliver her. It was a girl. Cried and breathed spontaneously. Cord was divided with delay. Baby was handed over to the german teacher and given Apgars 9 and 9. Placenta was removed. Uterine cavity was cleaned. Internal os was dilated. Hysterotomy was closed with continuous running Biosyn 0 suture. A few slightly oozing points were secured with Biosyn 0 mattress sutures. Pelvis was lavaged. Count was correct. Peritoneum was closed with continuous running Biosyn 2-0 suture. Fascia was closed with continuous running Vicryl 1 suture. Deep subcutaneous tissue was approximated with interrupted 2 layers of Biosyn 2-0 sutures. Skin edges were approximated with continuous running subcuticular Biosyn 2-0 suture and Steri-Strips. Urine was found to be completely clear in the Mariscal catheter bag. Patient withstood the surgery well. With sterile dressing on the incision and held with a binder, patient was transferred to the recovery room. Estimated blood loss was 650 mL. ADIEL CAMPUZANO MD [id number]
[2019-04-29] MEDS ORDERED: ACETAMINOPHEN INJECTION 100 ML IVPB ONE (17:10)
[2019-04-29] MEDS: OXYTOCIN 20 UNITS in 0.9% NS 20 UNIT/1,000 ML INFUS.BAG IV SCH (17:15)
[2019-04-29] MEDS: ACETAMINOPHEN 1000 MG/100 ML VIAL (NON FORMULARY) IVPB PRN ×2 (17:15→23:55)
[2019-04-29] MEDS: FERROUS SO4 325 MG TABLET (FP) PO SCH (21:20)
[2019-04-29] MEDS: LABETALOL HCL 100 MG TABLET (FP) PO SCH (22:51)
[2019-04-29] MEDS: CEFAZOLIN 1 GM/D5W 1 GM/50 ML BAG IVPB SCH (22:52)
[2019-04-29] MEDS ORDERED: KETOROLAC TROMETHAMINE 15 MG/ML VIAL IVPUSH PRN (23:00)
[2019-04-30] MEDS ORDERED: OXYTOCIN 20 UNITS in 0.9% NS 20 UNIT/1,000 ML INFUS.BAG IV SCH
[2019-04-30] MEDS: INSULIN SLIDING SCALE (NOVOLOG) 1 VIAL SQ SCH ×5 (00:45→21:22)
[2019-04-30] MEDS: CEFAZOLIN 1 GM/D5W 1 GM/50 ML BAG IVPB SCH ×2 (06:33→14:34)
[2019-04-30 07:53] LABS: BASO % 0.3 % (0-2.0); EOS % 0.8 % (0-4.5); HEMATOCRIT 25.9 % (32.4-45.2); HEMOGLOBIN 8.1 GM/dL (10.7-15.3); MCHC 31.5 g/dl (32.0-36.0); MEAN CELL VOLUME 76.1 fl (80-96); MEAN PLT VOLUME 10.4 fl (7.5-11.1); MONO % 6.2 % (3.8-10.2); NEUT % 70.7 % (42.8-82.8); PLATELET COUNT 175 K/MM3 (134-434); RBC 3.39 M/mm3 (3.60-5.2); RDW 16.6 % (11.6-15.6); WHITE BLOOD COUNT 9.4 K/mm3 (4.0-10.0)
--- NOTE | 2019-04-30 08:16 | PN ---
Progress Note (short form) - Note Progress Note: Anesthesia post op/pain Pt seen and examined S:Alert and awake comfortable O: Vital Signs Temperature 98.7 F 04/30/19 06:00 Pulse Rate 90 04/30/19 06:00 Respiratory Rate 18 04/30/19 07:00 Blood Pressure 135/71 04/30/19 06:00 O2 Sat by Pulse Oximetry (%) 100 04/29/19 17:30 A/P: Current Active Problems Diabetes mellitus affecting , antepartum (Acute) s/p c section Doing well post op Continue current care Donato Barba MD
[2019-04-30 08:30] LABS: BLOOD UREA NITROGEN 8.4 mg/dL (7-18); CALCIUM 7.6 mg/dL (8.5-10.1); CREATININE 0.5 mg/dL (0.55-1.3); POTASSIUM 4.1 mmol/L (3.5-5.1)
[2019-04-30] MEDS: ACETAMINOPHEN 1000 MG/100 ML VIAL (NON FORMULARY) IVPB PRN (08:47)
--- NOTE | 2019-04-30 08:50 | PN ---
Progress Note (short form) - Note Progress Note: 33yo F s/p POD 1, pt seen and examined at bedside. Pt states that she has been having moderate amount of abd pain. Pt has yet to ambulate and still has foster in place. Pt denies fever, chill, n/v. Last Vital Signs Temp Pulse Resp BP Pulse Ox 98.7 F 90 18 135/71 100 04/30/19 06:00 04/30/19 06:00 04/30/19 07:00 04/30/19 06:00 04/29/19 17:30 PE; Gen: A&O x3 Resp: breathing comfortably Abd: soft, gravid abdomen, moderate lower abd tenderness, some oozing from incision site. Ext: +1 edema b/l Problem List - Problems (1) Postcesarean section Assessment/Plan: Plan -DC foster, OOB ambulate -pain control -insulin sliding scale per endocrine Code(s): Z98.891 - HISTORY OF UTERINE SCAR FROM PREVIOUS SURGERY (2) Diabetes mellitus affecting , antepartum Code(s): O24.919 - UNSP DIABETES MELLITUS IN , UNSPECIFIED TRIMESTER
--- NOTE | 2019-04-30 08:55 | OP ---
Operative Note - Note: Operative Date: 04/29/19 Pre-Operative Diagnosis: Early term gestation. Previous c/s. Insulin dependent DM. Impending preeclampsia; proteimuria over 2 G/24 hrs Operation: Repeat low segment transverse c/section Surgeon: Javier Shrestha Anesthesia: Spinal Estimated Blood Loss (mls): 650 Operative Report Dictated: Yes
--- NOTE | 2019-04-30 08:57 | OP ---
Operative Note - Note: Operative Date: 04/30/19 Pre-Operative Diagnosis: Intrauterine early term. Previous c- section. Insulin dependent DM. Impending preeclampsia, proteinuria over 3g for 24 hrs Operation: Findings: as dictated Post-Operative Diagnosis: Same as Pre-op Surgeon: Javier Shrestha Patient Safety Manager: Brice Bueno Anesthesiologist/WATERWAY TRAFFIC CHECKER: Jonathan Butt Anesthesia: Spinal Estimated Blood Loss (mls): 650 (ml) Fluid Volume Replaced (mls): 1 (L LR) Operative Report Dictated: Yes
--- NOTE | 2019-04-30 09:00 | SURG ---
Surgery Area Director Note Area Director: Brice Bueno PA-C (Suzy) Date of Service: 04/29/19 Diagnosis: Intrauterine early term. Previous . Insulin dependent DM. Impending preeclampsia, proteinuria over 3g for 24 hrs Procedure: Operation: I was present for the entirety of the operative procedure. For further detail, please refer to operative report. Visit type - Case Type Case Type: Scheduled - Emergency Emergency Visit: No - New patient This patient is new to me today: Yes Date on this admission: 04/30/19 - Critical Care Critical Care patient: No
--- NOTE | 2019-04-30 09:03 | PN ---
Post Progress Note Post Day: 1 Type of Delivery: Repeat C/S Vital Signs: Vital Signs Temperature 98.7 F 04/30/19 06:00 Pulse Rate 90 04/30/19 06:00 Respiratory Rate 18 04/30/19 07:00 Blood Pressure 135/71 04/30/19 06:00 O2 Sat by Pulse Oximetry (%) 100 04/29/19 17:30 Breast Exam: Yes: Soft Uterus: Yes: Fundus Firm Incision: Yes: Dressing dry and intact Abdomen/GI: Yes: Abdomen soft, Tolerating PO Lochia: Yes: Rubra Lochia, amount: Moderate Extremities: Yes: Calves non-tender Perineum: Yes: Intact Activity: Ambulating - Labs Labs: CBC WBC 9.4 K/mm3 (4.0-10.0) 04/30/19 07:30 RBC 3.39 M/mm3 (3.60-5.2) L 04/30/19 07:30 Hgb 8.1 GM/dL (10.7-15.3) L 04/30/19 07:30 Hct 25.9 % (32.4-45.2) L D 04/30/19 07:30 MCV 76.1 fl (80-96) L 04/30/19 07:30 MCH 24.0 pg (25.7-33.7) L 04/30/19 07:30 MCHC 31.5 g/dl (32.0-36.0) L 04/30/19 07:30 RDW 16.6 % (11.6-15.6) H 04/30/19 07:30 Plt Count 175 K/MM3 (134-434) D 04/30/19 07:30 MPV 10.4 fl (7.5-11.1) 04/30/19 07:30 Absolute Neuts (auto) 6.6 K/mm3 (1.5-8.0) 04/30/19 07:30 Neutrophils % 70.7 % (42.8-82.8) 04/30/19 07:30 Lymphocytes % 22.0 % (8-40) 04/30/19 07:30 Monocytes % 6.2 % (3.8-10.2) 04/30/19 07:30 Eosinophils % 0.8 % (0-4.5) 04/30/19 07:30 Basophils % 0.3 % (0-2.0) 04/30/19 07:30 Nucleated RBC % 0 % (0-0) 04/30/19 07:30 Problem List - Problems (1) delivery delivered Code(s): O82 - ENCOUNTER FOR DELIVERY WITHOUT INDICATION Assessment/Plan POD # 1. Not OOB yet. D/C Mariscal. OOB, shower today. Brestfeeding. Incision clean and dry now. Recovering well. All discussed.
[2019-04-30] MEDS ORDERED: FLU VACCINE QUAD 60 MCG/0.5 ML (MDV 19-20) IM ONE (10:00)
[2019-04-30] MEDS ORDERED: FLU VACC QS2019-20(6MOS UP)/PF 60 MCG/0.5 ML SYRINGE IM ONE (10:00)
[2019-04-30] MEDS: PRENATAL VITAMINS W/ FOLIC ACID TABLET (FP) PO SCH (10:30)
[2019-04-30] MEDS: FERROUS SO4 325 MG TABLET (FP) PO SCH ×2 (10:30→21:21)
[2019-04-30] MEDS: LABETALOL HCL 100 MG TABLET (FP) PO SCH (10:31)
[2019-04-30] MEDS: oxyCODONE HCL 5 MG TABLET PO PRN ×3 (12:52→20:52)
[2019-04-30] MEDS: SIMETHICONE 80 MG TAB.CHEW (FP) PO PRN ×3 (12:54→20:51)
[2019-04-30] MEDS ORDERED: BISACODYL 10 MG SUPP.RECT RC PRN (15:59)
[2019-04-30] MEDS: OXYTOCIN 20 UNITS in 0.9% NS 20 UNIT/1,000 ML INFUS.BAG IV SCH (17:48)
[2019-04-30] MEDS: ACETAMINOPHEN 325 MG TABLET (FP) PO PRN (20:51)
[2019-04-30] MEDS: LABETALOL HCL 200 MG TABLET (FP) PO SCH (21:22)
[2019-04-30] MEDS ORDERED: INSULIN SLIDING SCALE (NOVOLOG) 1 VIAL SQ SCH (21:46)
--- NOTE | 2019-04-30 21:53 | PN ---
Progress Note, Physician Chief Complaint: now rolando would prefer insulin pump - Current Medication List Current Medications: Active Medications Acetaminophen (Tylenol -) 650 mg PO Q4H PRN PRN Reason: PAIN LEVEL 1-5 Last Admin: 04/30/19 20:51 Dose: 650 mg Bisacodyl (Dulcolax Suppository -) 10 mg RC PRN PRN PRN Reason: CONSTIPATION Diphenhydramine HCl (Benadryl Injection -) 25 mg IVPUSH Q4H PRN PRN Reason: Pruritis Last Admin: 04/30/19 08:54 Dose: 25 mg Famotidine (Acid Core Paster) 10 mg PO BID PRN PRN Reason: INDIGESTION Ferrous Sulfate (Feosol -) 325 mg PO BID [facility] Last Admin: 04/30/19 21:21 Dose: 325 mg Cefazolin Sodium (Ancef 1 Gm Premixed Ivpb -) 1 gm in 50 mls @ 100 mls/hr IVPB Q8H [facility] Stop: 04/30/19 22:39 Last Admin: 04/30/19 14:34 Dose: 100 mls/hr Oxytocin/Sodium Chloride (Normal Saline+20 Units Oxytocin -) 20 unit in 1,000 mls @ 125 mls/hr IV ASDIR [facility] Stop: 05/01/19 01:14 Last Admin: 04/30/19 17:48 Dose: Not Given Insulin Aspart (Novolog Vial Sliding Scale -) 1 vial SQ ACHS [facility]; Protocol Insulin Detemir (Levemir Vial) 20 units SQ HS [facility] Insulin Detemir (Levemir Vial) 27 units SQ AM [facility] Ketorolac Tromethamine (Toradol Injection -) 15 mg IVPUSH Q6H PRN PRN Reason: PAIN LEVEL 4 - 6 Stop: 05/04/19 22:59 Labetalol HCl (Normodyne -) 200 mg PO BID [facility] Last Admin: 04/30/19 21:22 Dose: 200 mg Ondansetron HCl (Zofran Injection) 4 mg IVPUSH Q4H PRN PRN Reason: NAUSEA Oxycodone HCl (Roxicodone -) 5 mg PO Q6H PRN PRN Reason: PAIN LEVEL 7 - 10 Last Admin: 04/30/19 20:52 Dose: 5 mg Multivit/Folic Acid/Iron ( Vitamins (Sjr) -) 1 tab PO DAILY [facility] Last Admin: 04/30/19 10:30 Dose: 1 tab Senna/Docusate Sodium (Pericolace -) 2 tablet PO HS PRN PRN Reason: CONSTIPATION Simethicone (Mylicon -) 80 mg PO Q4H PRN PRN Reason: GAS Last Admin: 04/30/19 20:51 Dose: 80 mg - Objective Vital Signs: Vital Signs Temperature 98.2 F 04/30/19 17:45 Pulse Rate 85 04/30/19 17:45 Respiratory Rate 18 04/30/19 17:45 Blood Pressure 148/80 04/30/19 17:45 O2 Sat by Pulse Oximetry (%) 100 04/29/19 17:30 Constitutional: Yes: Calm Eyes: Yes: EOM Intact HENT: Yes: Normocephalic Neck: Yes: Trachea Midline Cardiovascular: Yes: Regular Rate and Rhythm Respiratory: Yes: CTA Bilaterally Gastrointestinal: Yes: Normal Bowel Sounds ...Rectal Exam: Yes: Deferred Genitourinary: Yes: WNL Musculoskeletal: Yes: WNL Extremities: Yes: WNL Edema: No Peripheral Pulses WNL: Yes Neurological: Yes: Alert, Oriented Labs: CBC, BMP 04/30/19 07:30 04/30/19 07:30 Problem List - Problems (1) Diabetes mellitus affecting , antepartum Problems reviewed: Yes Assessment/Plan Current Active Problems delivery delivered (Acute) Diabetes mellitus affecting , antepartum (Acute) Abnormal Lab Results 04/30/19 04/30/19 07:30 07:30 RBC 3.39 L Hgb 8.1 L Hct 25.9 L D MCV 76.1 L MCH 24.0 L MCHC 31.5 L RDW 16.6 H Chloride 108 H Creatinine 0.5 L Calcium 7.6 L Laboratory Results - last 24 hr 04/30/19 04/30/19 04/30/19 06:22 07:30 07:30 WBC 9.4 RBC 3.39 L Hgb 8.1 L Hct 25.9 L D MCV 76.1 L MCH 24.0 L MCHC 31.5 L RDW 16.6 H Plt Count 175 D MPV 10.4 Absolute Neuts (auto) 6.6 Neutrophils % 70.7 Lymphocytes % 22.0 Monocytes % 6.2 Eosinophils % 0.8 Basophils % 0.3 Nucleated RBC % 0 Sodium 137 Potassium 4.1 Chloride 108 H Carbon Dioxide 21 Anion Gap 8 BUN 8.4 Creatinine 0.5 L Est GFR (CKD-EPI)AfAm 147.38 Est GFR (CKD-EPI)NonAf 127.16 POC Glucometer 117 Random Glucose 105 Calcium 7.6 L 04/30/19 04/30/19 04/30/19 11:12 16:56 21:06 WBC RBC Hgb Hct MCV MCH MCHC RDW Plt Count MPV Absolute Neuts (auto) Neutrophils % Lymphocytes % Monocytes % Eosinophils % Basophils % Nucleated RBC % Sodium Potassium Chloride Carbon Dioxide Anion Gap BUN Creatinine Est GFR (CKD-EPI)AfAm Est GFR (CKD-EPI)NonAf POC Glucometer 211 150 255 Random Glucose Calcium plan: patient able and willing to use insulin omni pod cgms and pump basal rate set 2.2 unit/hr novolog insulin bgm achs pt will regulate basal bolus as trained by cde call if sugar below 60mg/dl or above 350mg/dl
[2019-04-30] MEDS ORDERED: INSULIN (LEVEMIR) 100 UNITS/ML UNITS SQ SCH (22:00)
[2019-05-01] MEDS: oxyCODONE HCL 5 MG TABLET PO PRN ×3 (03:27→22:17)
[2019-05-01] MEDS: SIMETHICONE 80 MG TAB.CHEW (FP) PO PRN ×2 (03:27→22:17)
[2019-05-01] MEDS: ACETAMINOPHEN 325 MG TABLET (FP) PO PRN ×3 (03:28→22:17)
[2019-05-01] MEDS ORDERED: INSULIN (LEVEMIR) 100 UNITS/ML UNITS SQ SCH (07:00)
[2019-05-01 07:49] LABS: BASO % 0.6 % (0-2.0); EOS % 1.4 % (0-4.5); HEMOGLOBIN 8.5 GM/dL (10.7-15.3); LYMPH % 22.4 % (8-40); MCH 24.5 pg (25.7-33.7); MCHC 32.6 g/dl (32.0-36.0); MEAN CELL VOLUME 75.2 fl (80-96); MEAN PLT VOLUME 9.8 fl (7.5-11.1); MONO % 5.7 % (3.8-10.2); NEUT % 69.9 % (42.8-82.8); PLATELET COUNT 201 K/MM3 (134-434); RBC 3.46 M/mm3 (3.60-5.2); RDW 16.7 % (11.6-15.6); WHITE BLOOD COUNT 9.8 K/mm3 (4.0-10.0)
--- NOTE | 2019-05-01 08:29 | PN ---
Progress Note (short form) - Note Progress Note: POD # 2 Patient is doing well. Flatus pos. BP under control on Labatolol. Back o insulin pump. PE Abd. soft. Incision clean and dry. No CVA, extrem. T. Breasts soft. Nursing. I/P: recovering nicely. Discharge tomorrow. Problem List - Problems (1) delivery delivered Code(s): O82 - ENCOUNTER FOR DELIVERY WITHOUT INDICATION
[2019-05-01] MEDS: PRENATAL VITAMINS W/ FOLIC ACID TABLET (FP) PO SCH (10:49)
[2019-05-01] MEDS: FERROUS SO4 325 MG TABLET (FP) PO SCH ×2 (10:49→22:12)
[2019-05-01] MEDS: LABETALOL HCL 200 MG TABLET (FP) PO SCH ×2 (10:49→22:12)
[2019-05-01] MEDS: INSULIN SLIDING SCALE (NOVOLOG) 1 VIAL SQ SCH ×3 (11:50→22:28)
--- NOTE | 2019-05-02 07:46 | PN ---
Progress Note (short form) - Note Progress Note: POD 3, s/p . Pt seen and examined. Reports she is feeling well. Has some abdominal pain, improved with meds. Tolerating PO. Voiding, +BM yesterday. Reports some mild vaginal bleeding, no clots. Has been oob. Nursing. Denies cp/sob, n/v/d. Vital Signs Temp 98.0 F 05/02/19 06:00 Pulse 85 05/02/19 06:00 Resp 20 05/02/19 06:00 BP 137/81 05/02/19 06:00 Pulse Ox 100 04/29/19 17:30 Intake & Output 05/01/19 05/01/19 05/02/19 11:59 23:59 11:59 Other: Voiding Method Toilet CBC, BMP 04/30/19 07:30 Gen Awake, alert, nad Resp: unlabored on RA Abdo: soft, nt/nd, incision c/d/i with steristrips in place A/P: 33 y/o F w/ T2DM on Insulin pump, admitted for due to Impending preeclampsia, now POD 3 from . Pt doing well Afebrile, VSS Incision benign AM cbc pending -Plan for d/c today D/C instructions d/w pt at length, pt verbalized understanding d/w attending Dr Shrestha
[2019-05-02 07:56] LABS: BASO % 0.4 % (0-2.0); EOS % 2.3 % (0-4.5); HEMATOCRIT 24.8 % (32.4-45.2); HEMOGLOBIN 7.8 GM/dL (10.7-15.3); LYMPH % 26.2 % (8-40); MCHC 31.4 g/dl (32.0-36.0); MEAN CELL VOLUME 76.4 fl (80-96); MEAN PLT VOLUME 10.1 fl (7.5-11.1); MONO % 6.6 % (3.8-10.2); NEUT % 64.5 % (42.8-82.8); PLATELET COUNT 189 K/MM3 (134-434); RBC 3.25 M/mm3 (3.60-5.2); RDW 16.9 % (11.6-15.6); WHITE BLOOD COUNT 8.6 K/mm3 (4.0-10.0)
[2019-05-02] MEDS: INSULIN SLIDING SCALE (NOVOLOG) 1 VIAL SQ SCH ×2 (08:50→11:43)
[2019-05-02] MEDS: LABETALOL HCL 200 MG TABLET (FP) PO SCH (09:51)
[2019-05-02] MEDS: FERROUS SO4 325 MG TABLET (FP) PO SCH (09:51)
[2019-05-02] MEDS: PRENATAL VITAMINS W/ FOLIC ACID TABLET (FP) PO SCH (09:52)
[2019-05-02 17:52] VITALS: BP 138/82; PULSE 82; TEMP 98
--- NOTE | 2019-05-06 16:32 | PATH ---
Surgical Pathology Report Patient Name: SANDRA KOCH [facility]. Rec. #: [id number] /Age/Gender: 1985 (Age: 33) / F Account: [id number] Location: [facility] OBS/TACK CLEANER Taken: 04/29/2019 Received: 04/30/2019 Reported: 05/06/2019 Physicians: Javier Shrestha MD Specimen(s) Received PLACENTA Clinical History , previous x1, 37.4 weeks for repeat , SPAB x2, malabsorption anemia, type 2 diabetes Final Diagnosis PLACENTA, SECTION: 470 G THIRD TRIMESTER PLACENTA WITH TRIVASCULAR UMBILICAL CORD AND UNREMARKABLE PLACENTAL MEMBRANES. Electronically Signed Josefina Stafford M.D. Gross Description The specimen is received fresh labeled placenta and is a 470 gram, 16.0 x 15.0 x 2.8 cm. placenta with attached membranes and umbilical cord. The attached membranes are mccall, translucent with focal opacities and insert marginally. The umbilical cord measures 25 cm. in length and averages 1.1 cm. in diameter. The cord inserts eccentrically, 3.5 cm. to the nearest margin. No true knots or strictures are identified. Cut surface of the umbilical cord reveals 3 vessels. The surface is espinal blue with moderate fibrin deposition and appropriate caliber vessels. The maternal surface is red-brown with focal defects. Sectioning reveals red-brown, spongy parenchyma. No lesions are identified. Petrology Teacher sections are submitted in three cassettes as follows: 1- membrane rolls and umbilical cord; 2-3- full thickness sections of placenta. /05/05/2019 [facility]05/05/2019
== END 2019-05-02 16:06 | disposition home or self-care (01) | DRG 540 ==
LOC: JLDR 11:45 → J3W 18:00
PROVIDERS: ADMIT Specialist; ATTEND Specialist
PROC: 10D00Z1 Extraction of Products of Conception, Low, Open Approach (ICD-10-PCS; principal; 2019-04-29)
PROC: 0DNU0ZZ Release Omentum, Open Approach (ICD-10-PCS; 2019-04-29)
DX: O14.94 Unspecified pre-eclampsia, complicating childbirth (principal); O34.211 Maternal care for low transverse scar from previous cesarean delivery; N85.8 Other specified noninflammatory disorders of uterus; O24.92 Unspecified diabetes mellitus in childbirth; Z3A.37 37 weeks gestation of pregnancy; K66.0 Peritoneal adhesions (postprocedural) (postinfection); Z79.4 Long term (current) use of insulin; Z37.0 Single live birth
CPT/HCPCS: 36415; 80048; 82962; 85025; 86850; 86900; 86901; 88307-TC; 90686; J0131

== ENCOUNTER 2020-04-12 16:32 | Emergency (ER) | payer OTHER ==
--- NOTE | 2020-04-12 16:40 | PDOC ---
Rapid Medical Evaluation Time Seen by Provider: 04/12/20 16:38 Medical Evaluation: Allergies Allergy/AdvReac Type Severity Reaction Status Date / Time No Known Allergies Allergy Verified 04/12/20 16:36 04/12/20 16:38 I have performed a brief in-person examination on this patient. CC: epigastric burning radiating to chest s/p vomiting. PMHx- gastric sleeve '18 PE: No focal findings Orders: labs, EKG, pepcid, Maalox, viscous lidocaine Patient will proceed to ED for further evaluation. Discharge Disposition - Diagnosis Burning in the chest - Referrals - Patient Instructions - Post Discharge Activity
[2020-04-12] MEDS ORDERED: LIDOCAINE VISCOUS 2% ORAL/TOP 20 ML UNIT-DOSE CUP PO ONE (16:41)
[2020-04-12] MEDS ORDERED: FAMOTIDINE 20 MG TABLET PO ONE (16:41)
[2020-04-12] MEDS ORDERED: MAG HYDROX/AL HYDROX/SIMETH 30 ML UNIT-DOSE CUP PO ONE (16:41)
[2020-04-12 16:42] VITALS: BP 112/84; PULSE 113; TEMP 98.5; BMI 29.9
[2020-04-12] MEDS ORDERED: MAG HYDROX/AL HYDROX/SIMETH 30 ML UNIT-DOSE CUP ONE (18:01)
[2020-04-12] MEDS ORDERED: FAMOTIDINE 20 MG TABLET ONE (18:01)
[2020-04-12] MEDS ORDERED: LIDOCAINE VISCOUS 2% ORAL/TOP 20 ML UNIT-DOSE CUP ONE (18:01)
[2020-04-12 19:48] LABS: BASO % 0.6 % (0-2.0); EOS % 4.3 % (0-4.5); HEMATOCRIT 31.5 % (32.4-45.2); HEMOGLOBIN 9.7 GM/dL (10.7-15.3); LYMPH % 30.1 % (8-40); MCHC 30.8 g/dl (32.0-36.0); MEAN CELL VOLUME 63.8 fl (80-96); MEAN PLT VOLUME 10.6 fl (7.5-11.1); MONO % 5.7 % (3.8-10.2); NEUT % 59.3 % (42.8-82.8); PLATELET COUNT 312 K/MM3 (134-434); RBC 4.94 M/mm3 (3.60-5.2); RDW 16.7 % (11.6-15.6); WHITE BLOOD COUNT 11.1 K/mm3 (4.0-10.0)
[2020-04-12 19:52] LABS: MCH 19.7 pg (25.7-33.7)
[2020-04-12 20:25] LABS: ALBUMIN 3.4 g/dl (3.4-5.0); ALK PHOS 160 U/L (45-117); ANION GAP 6 MMOL/L (8-16); BILIRUBIN,TOTAL 0.1 mg/dL (0.2-1); BLOOD UREA NITROGEN 13.4 mg/dL (7-18); CALCIUM 8.7 mg/dL (8.5-10.1); CHLORIDE 108 mmol/L (98-107); CO2 27 mmol/L (21-32); CREATININE 0.5 mg/dL (0.55-1.3); GLUCOSE,RANDOM 64 mg/dL (74-106); LIPASE 140 U/L (73-393); MAGNESIUM 2.1 mg/dL (1.8-2.4); POTASSIUM 4.7 mmol/L (3.5-5.1); SGOT/AST 25 U/L (15-37); SGPT/ALT 24 U/L (13-61); SODIUM 140 mmol/L (136-145); TOT PROT 7.5 g/dl (6.4-8.2)
--- NOTE | 2020-04-12 20:53 | PDOC ---
History of Present Illness - General Chief Complaint: Chest Pain Stated Complaint: CHEST PAIN Time Seen by Provider: 04/12/20 16:38 History Source: Patient - History of Present Illness Initial Comments: 04/12/20 20:49 34-year-old female with history of gastric bypass surgery, NIDDM complaining of midsternal burning chest pain, nausea and vomiting shortly after eating. Patient reports that this is unusual with the chest pain however has nausea and vomiting after eating since gastric bypass surgery. Denies shortness of breath, diaphoresis, dizziness. Patient reports that after that the chest pain resolved patient started having abdominal cramping. Denies diarrhea, abdominal pain at this time. Denies exposure to COVID-19, denies recent travel. 04/12/20 20:51 Past History - Medical History Allergies/Adverse Reactions: Allergies Allergy/AdvReac Type Severity Reaction Status Date / Time No Known Allergies Allergy Verified 04/12/20 16:36 Home Medications: Ambulatory Orders Insulin Aspart [Novolog] 0 unit SQ ASDIR 04/12/20 Asthma: No Cancer: No Cardiac Disorders: No COPD: No Diabetes: Yes (type 2) HTN: Yes (gestational - this ) Seizures: No Thyroid Disease: No - Surgical History Appendectomy: Yes - Reproductive History Is Patient Now?: No Therapeutic (s) & number: No - Immunization History Immunization Up to Date: No - Psycho-Social/Smoking History Smoking History: Never smoked Have you smoked in the past 12 months: No - Substance Abuse Hx (Audit-C & DAST Scrn) How often the patient has a drink containing alcohol: Never Score: In Men: 4 or > Positive; In Women: 3 or > Positive: 0 Screen Result (Pos requires Nsg. Audit-10AR): Negative In the last yr the pt used illegal drug/Rx for NonMed reason: No Score: Yes response is considered Positive: 0 Screen Result (Positive result requires Nsg. DAST-10): Negative Review of Systems - Review of Systems Able to Perform ROS?: Yes Is the patient limited [place]ic proficient: No Constitutional: No: Symptoms Reported, See HPI, Chills, Diaphoresis, Fever, Loss of Appetite, Malaise, Night Sweats, Weakness, Weight Stable, Unintentional Wgt. Loss, Unexplained wgt Loss, Other Cardiac (ROS): Yes: Chest Pain ABD/GI: Yes: Nausea, Vomiting, Abdominal cramping *Physical Exam - Vital Signs Last Vital Signs Temp Pulse Resp BP Pulse Ox 98.5 F 113 H 18 112/84 100 04/12/20 16:36 04/12/20 16:36 04/12/20 16:36 04/12/20 16:36 04/12/20 16:36 - Physical Exam General Appearance: Yes: Appropriately Dressed Respiratory/Chest: positive: Lungs Clear, Normal Breath Sounds Cardiovascular: positive: Regular Rhythm, Regular Rate Gastrointestinal/Abdominal: positive: Normal Bowel Sounds, Soft. negative: Tender Extremity: positive: Normal Capillary Refill, Normal Inspection, Normal Range of Motion Integumentary: positive: Normal Color, Dry, Warm Neurologic: positive: Fully Oriented, Alert, Normal Mood/Affect Heart Score/ECG Review - History History: Slightly suspicious - Electrocardiogram EKG: Normal - Age Age: </= 45 - Risk Factors Risk Factors Heart Score: Yes Hx Diabetes, Yes Hx Obesity Based on the list above the patient has:: 1-2 risk factors - Troponin Troponin: </= normal limit - Score Heart Score - Total: 1 - ECG Intrepretation Rhythm: Regular Rhythm Comment:: 04/12/20 20:54 NSR: 89bpm ED Treatment Course - LABORATORY CBC & Chemistry Diagram: 04/12/20 18:10 04/12/20 18:14 - ADDITIONAL ORDERS Additional order review: Laboratory Results 04/12/20 18:14 Sodium 140 Potassium 4.7 Chloride 108 H Carbon Dioxide 27 Anion Gap 6 L BUN 13.4 Creatinine 0.5 L Est GFR (CKD-EPI)AfAm 146.35 Est GFR (CKD-EPI)NonAf 126.27 Random Glucose 64 L Calcium 8.7 Magnesium 2.1 Total Bilirubin 0.1 L AST 25 ALT 24 Alkaline Phosphatase 160 H Creatine Kinase 118 Troponin I < 0.02 Total Protein 7.5 Albumin 3.4 Lipase 140 04/12/20 18:10 RBC 4.94 MCV 63.8 L MCHC 30.8 L RDW 16.7 H MPV 10.6 Neutrophils % 59.3 Lymphocytes % 30.1 Monocytes % 5.7 Eosinophils % 4.3 Basophils % 0.6 - Medications Given in the ED: ED Medications Discontinued Medications Generic Name Dose Route Start Last Admin Trade Name Freq PRN Reason Stop Dose Admin Al Hydroxide/Mg Hydroxide 30 ml 04/12/20 16:41 04/12/20 18:14 Mylanta Oral Suspension - PO 04/12/20 16:42 30 ml ONCE ONE Administration Famotidine 20 mg 04/12/20 16:41 04/12/20 18:15 Pepcid - PO 04/12/20 16:42 20 mg ONCE ONE Administration Lidocaine HCl 20 ml 04/12/20 16:41 04/12/20 18:15 Xylocaine 2% Viscous Oral - PO 04/12/20 16:42 20 ml ONCE ONE Administration ED Progress Note - Progress Note Progress Note: 04/13/20 02:25 A: GERD: Chest pain P: labs EKG Chest xray lidocaine, maalox, pepcid 04/13/20 02:25 Medical Decision Making - Medical Decision Making 04/12/20 21:07 glucose 64 patient tolerated PO crackers. no vomiting. feeling better will d/c home Discharge - Discharge Information Problems reviewed: Yes Clinical Impression/Diagnosis: Chest pain in adult GERD (gastroesophageal reflux disease) Qualifiers: Esophagitis presence: esophagitis presence not specified Qualified Code(s): K21.9 - Gastro-esophageal reflux disease without esophagitis Disposition: HOME - Follow up/Referral Referrals: ON STAFF,NOT [Primary Care Provider] - Mario Denis MD [Staff Physician] - Call tomorrow - Patient Discharge Instructions Patient Printed Discharge Instructions: DI for Chest Pain Additional Instructions: Please follow-up with your doctor as soon as possible. Your test results were within normal limits. Likely you had acid reflux. Avoid eating prior to bedtime, spicy and highly acidic food. Eat small meals. Start a bland diet. 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 Return to the emergency room for any worsening symptoms - Post Discharge Activity Work/Back to School Note: Back to Work
--- NOTE | 2020-04-13 09:54 | EKG ---
Test Reason : Blood Pressure : / mmHG Vent. Rate : 089 BPM Atrial Rate : 089 BPM P-R Int : 164 ms QRS Dur : 082 ms QT Int : 362 ms P-R-T Axes : 052 071 044 degrees QTc Int : 440 ms NORMAL SINUS RHYTHM POSSIBLE LEFT ATRIAL ENLARGEMENT BORDERLINE ECG NO PREVIOUS ECGS AVAILABLE Confirmed by Dennis Matthews MD ([id number]) on 04/13/2020 9:53:48 AM Referred By: Confirmed By:Dennis Matthews MD
== END 2020-04-12 21:39 | disposition home or self-care (01) ==
LOC: JER 16:32
DX: R07.9 Chest pain, unspecified (principal); K21.9 Gastro-esophageal reflux disease without esophagitis
CPT/HCPCS: 36415; 71046-TC-FY; 80053; 82550; 83690; 83735; 84484; 84703; 85025; 87077; 87086; 93005; 93010; 99285-25

== ENCOUNTER 2020-11-29 21:48 | Emergency (ER) | payer OTHER ==
[2020-11-29 22:17] VITALS: BP 143/84; PULSE 101; TEMP 98.3; BMI 29.2
[2020-11-29] MEDS ORDERED: IBUPROFEN 600 MG TABLET (FP) PO ONE ×2 (22:36→22:38)
[2020-11-29] MEDS ORDERED: LORATADINE 10 MG TABLET PO ONE (22:36)
[2020-11-29] MEDS ORDERED: LORATADINE 10 MG TABLET ONE (22:38)
== END 2020-11-29 23:06 | disposition home or self-care (01) ==
LOC: JER 21:48
DX: J06.9 Acute upper respiratory infection, unspecified (principal)
CPT/HCPCS: 99283-25

== ENCOUNTER 2020-12-17 22:26 | Emergency (ER) | payer OTHER ==
[2020-12-17 22:34] VITALS: BMI 29.9
[2020-12-17] MEDS ORDERED: FAMOTIDINE 20 MG/50 ML IVPB 20 MG/50 ML MG IVPB ONE ×2 (23:34→23:46)
[2020-12-17] MEDS ORDERED: morphine CARPU-JECT 2 MG/1 ML DISP.SYRIN IVPUSH ONE (23:34)
[2020-12-17] MEDS ORDERED: MORPHINE SULFATE 2 MG/ML VIAL ONE (23:46)
[2020-12-18 00:47] LABS: BASO % 0.6 % (0-2.0); EOS % 4.6 % (0-4.5); HEMATOCRIT 30.2 % (32.4-45.2); HEMOGLOBIN 9.2 GM/dL (10.7-15.3); LYMPH % 36.6 % (8-40); MCHC 30.5 g/dl (32.0-36.0); MEAN CELL VOLUME 58.6 fl (80-96); MEAN PLT VOLUME 9.6 fl (7.5-11.1); MONO % 6.3 % (3.8-10.2); NEUT % 51.9 % (42.8-82.8); PLATELET COUNT 304 K/MM3 (134-434); RBC 5.15 M/mm3 (3.60-5.2); RDW 20.7 % (11.6-15.6); WHITE BLOOD COUNT 9.5 K/mm3 (4.0-10.0)
[2020-12-18 00:50] LABS: MCH 17.9 pg (25.7-33.7)
[2020-12-18 00:56] LABS: PROTHROMBIN TIME (PATIENT) 12.3 SEC (9.7-13.0)
[2020-12-18 01:01] LABS: CALCIUM 8.9 mg/dL (8.5-10.1)
[2020-12-18 01:02] LABS: ALBUMIN 3.6 g/dl (3.4-5.0); BLOOD UREA NITROGEN 18.8 mg/dL (7-18)
[2020-12-18 01:05] LABS: CREATININE 0.8 mg/dL (0.55-1.3)
[2020-12-18 01:06] LABS: BILIRUBIN,TOTAL 0.1 mg/dL (0.2-1); TOT PROT 7.5 g/dl (6.4-8.2)
[2020-12-18 05:22] VITALS: BP 120/76; PULSE 78; TEMP 98.9
[2020-12-18 05:33] LABS: ANISOCYTOSIS 2+; MACROCYTOSIS 1+; PLATELET ESTIMATE INCREASED
== END 2020-12-18 05:39 | disposition home or self-care (01) ==
LOC: JER 22:26
PROC: 3E033NZ Introduction of Analgesics, Hypnotics, Sedatives into Peripheral Vein, Percutaneous Approach (ICD-10-PCS; principal; 2020-12-17)
PROC: 3E033GC Introduction of Other Therapeutic Substance into Peripheral Vein, Percutaneous Approach (ICD-10-PCS; 2020-12-17)
DX: K76.0 Fatty (change of) liver, not elsewhere classified (principal)
CPT/HCPCS: 36415; 74177-TC; 76705-TC; 80053; 83690; 84703; 85025; 85610; 85730; 86850; 86900; 86901; 99285-25

== ENCOUNTER 2021-01-06 08:17 | Emergency (ER) | payer OTHER ==
[2021-01-06 08:25] VITALS: BP 125/86; PULSE 77; TEMP 98.1; BMI 34.3
[2021-01-06] MEDS ORDERED: SODIUM CHLORIDE 1,000 ML IV STA (08:44)
[2021-01-06] MEDS ORDERED: MECLIZINE HCL 25 MG TABLET (FP) PO ONE (08:44)
[2021-01-06] MEDS ORDERED: METOCLOPRAMIDE HCL INJECTION 10 MG/2 ML VIAL IVPB ONE (08:44)
[2021-01-06] MEDS ORDERED: METOCLOPRAMIDE HCL INJECTION 10 MG/2 ML VIAL ONE (08:50)
[2021-01-06] MEDS ORDERED: MECLIZINE HCL 25 MG TABLET (FP) ONE (08:50)
[2021-01-06 09:21] LABS: HCG,QUALITATIVE URINE Negative
[2021-01-06 09:23] LABS: INR 0.97 (0.83-1.09); PROTHROMBIN TIME (PATIENT) 11.9 SEC (9.7-13.0)
[2021-01-06 09:42] LABS: CHLORIDE 106 mmol/L (98-107); SODIUM 138 mmol/L (136-145)
[2021-01-06 09:44] LABS: CALCIUM 8.4 mg/dL (8.5-10.1)
[2021-01-06 09:45] LABS: ALBUMIN 3.7 g/dl (3.4-5.0); ANION GAP 7 MMOL/L (8-16); BLOOD UREA NITROGEN 12.9 mg/dL (7-18); CO2 26 mmol/L (21-32); GLUCOSE,RANDOM 168 mg/dL (74-106)
[2021-01-06 09:48] LABS: CREATININE 0.6 mg/dL (0.55-1.3); SGOT/AST 19 U/L (15-37); SGPT/ALT 29 U/L (13-61); TOTAL IRON BINDING CAPACITY 472 ug/dL (250-450)
[2021-01-06 09:49] LABS: BILIRUBIN,TOTAL 0.2 mg/dL (0.2-1); TOT PROT 7.3 g/dl (6.4-8.2)
[2021-01-06 09:50] LABS: ALK PHOS 142 U/L (45-117)
[2021-01-06 10:35] LABS: BASO % 0.4 % (0-2.0); EOS % 4.4 % (0-4.5); HEMATOCRIT 32.7 % (32.4-45.2); LYMPH % 28.3 % (8-40); MCHC 30.5 g/dl (32.0-36.0); MEAN CELL VOLUME 59.9 fl (80-96); MEAN PLT VOLUME 9.5 fl (7.5-11.1); MONO % 4.9 % (3.8-10.2); PLATELET COUNT 284 10^3/uL (134-434); RBC 5.46 M/mm3 (3.60-5.2); RDW 21.4 % (11.6-15.6); WHITE BLOOD COUNT 10.4 K/mm3 (4.0-10.0)
[2021-01-06 10:39] LABS: MCH 18.3 pg (25.7-33.7)
[2021-01-06 10:53] LABS: EPI CELLS 6 /uL (0-25.1); HYALINE CASTS 0 /uL (0-3.1); PH,URINE 5.5 (5.0-8.0); URINE APPEARANCE CLEAR; URINE BACTERIA 163 /uL (0-1359); URINE BILIRUBIN NEGATIVE (NEGATIVE); URINE COLOR YELLOW; URINE GLUCOSE (UA) 2+ (NEGATIVE); URINE KETONE NEGATIVE (NEGATIVE); URINE LEUK ESTERASE NEGATIVE (NEGATIVE); URINE NITRITE NEGATIVE (NEGATIVE); URINE PROTEIN 1+ (NEGATIVE); URINE RBC 10 /uL (0-23.9); URINE UROBILINOGEN 0.2 mg/dL (0.2-1.0); URINE WBC 19 /uL (0-25.8)
[2021-01-06 11:10] LABS: ANISOCYTOSIS 3+; MACROCYTOSIS 0; PLATELET ESTIMATE NORMAL
== END 2021-01-06 12:09 | disposition home or self-care (01) ==
LOC: JER 08:17
PROC: 3E033NZ Introduction of Analgesics, Hypnotics, Sedatives into Peripheral Vein, Percutaneous Approach (ICD-10-PCS; principal; 2021-01-06)
PROC: 3E0337Z Introduction of Electrolytic and Water Balance Substance into Peripheral Vein, Percutaneous Approach (ICD-10-PCS; 2021-01-06)
DX: R42 Dizziness and giddiness (principal); D50.9 Iron deficiency anemia, unspecified
CPT/HCPCS: 36415; 80053; 81003; 82550; 82728; 83550; 84484; 84703; 85025; 85610; 86850; 86900; 86901; 87077; 87086; 87186; 93005; 93010; 99284-25; C9803; U0003; U0005

== ENCOUNTER 2021-05-02 04:31 | Day surgery (SDC) | payer OTHER ==
[2021-04-29 12:18] VITALS: BMI 26.6
[2021-05-02 12:36] LABS: EPI CELLS >36 /uL (0-25.1); HYALINE CASTS 4 /uL (0-3.1); PH,URINE 5.5 (5.0-8.0); URINE APPEARANCE CLEAR; URINE BACTERIA >9,000 /uL (0-1359); URINE BILIRUBIN NEGATIVE (NEGATIVE); URINE COLOR YELLOW; URINE GLUCOSE (UA) 3+ (NEGATIVE); URINE KETONE NEGATIVE (NEGATIVE); URINE LEUK ESTERASE NEGATIVE (NEGATIVE); URINE NITRITE NEGATIVE (NEGATIVE); URINE PROTEIN 1+ (NEGATIVE); URINE RBC 51 /uL (0-23.9); URINE UROBILINOGEN 0.2 mg/dL (0.2-1.0); URINE WBC 40 /uL (0-25.8)
[2021-05-02] MEDS ORDERED: BUPIVACAINE HCL/PF 0.5% (5MG/ML) 10 ML VIAL ONE (12:42)
[2021-05-02] MEDS ORDERED: MIDAZOLAM HCL 2 MG/2 ML SINGLE DOSE VIAL ONE (13:16)
[2021-05-02] MEDS ORDERED: ceFAZolin SODIUM 1 GM VIAL IVPB ONE (13:35)
[2021-05-02] MEDS ORDERED: ceFAZolin SODIUM 1 GM VIAL ONE (13:39)
[2021-05-02] MEDS ORDERED: BUPIVACAINE HCL/PF 0.5% (5MG/ML) 10 ML VIAL IJ ONE (14:10)
[2021-05-02] MEDS ORDERED: BACITRACIN 15 GM TUBE TOPICAL OINTMENT ONE (14:18)
[2021-05-02] MEDS ORDERED: BACITRACIN 15 GM TUBE TOPICAL OINTMENT TP ONE (14:24)
[2021-05-02] MEDS ORDERED: oxyCODONE HCL 5 MG TABLET ONE (17:34)
[2021-05-02] MEDS ORDERED: oxyCODONE HCL 5 MG TABLET PO PRN (17:34)
[2021-05-02 19:10] VITALS: BP 107/68; PULSE 72; TEMP 97.9
== END 2021-05-02 19:05 | disposition home or self-care (01) ==
LOC: JASU-SURG 04:31
PROVIDERS: ATTEND Surgery
PROC: 0WQF0ZZ Repair Abdominal Wall, Open Approach (ICD-10-PCS; principal; 2021-05-02 12:30)
DX: K42.9 Umbilical hernia without obstruction or gangrene (principal); E11.9 Type 2 diabetes mellitus without complications
CPT/HCPCS: 81003; 81025; 82962; 88302-TC; 94760

== ENCOUNTER 2021-09-21 20:48 | Emergency (ER) | payer OTHER ==
[2021-09-21 21:10] VITALS: BP 115/82; PULSE 86; TEMP 97.5; BMI 26.6
[2021-09-21] MEDS ORDERED: SULFAMETHOXAZOLE/TRIMETHOPRIM 800MG/160MG D.S. TABLET PO ONE (22:16)
[2021-09-21] MEDS ORDERED: CEPHALEXIN MONOHYDRATE 500 MG CAPSULE (UD) PO ONE (22:16)
[2021-09-21] MEDS ORDERED: CEPHALEXIN MONOHYDRATE 500 MG CAPSULE (UD) ONE (22:31)
[2021-09-21] MEDS ORDERED: SULFAMETHOXAZOLE/TRIMETHOPRIM 800MG/160MG D.S. TABLET ONE (22:31)
== END 2021-09-21 22:59 | disposition home or self-care (01) ==
LOC: JERFT 20:48
DX: L03.115 Cellulitis of right lower limb (principal)
CPT/HCPCS: 73610-TC-RT-FY; 73630-TC-RT-FY; 99283-25

== ENCOUNTER 2021-12-17 09:58 | Emergency (ER) | payer OTHER ==
[2021-12-17 10:25] VITALS: BP 111/75; PULSE 83; TEMP 97.7; BMI 28.0
[2021-12-17] MEDS ORDERED: diazePAM 5 MG TABLET PO ONE (10:56)
[2021-12-17] MEDS ORDERED: KETOROLAC TROMETHAMINE 30 MG/1 ML VIAL IVPUSH ONE (10:57)
[2021-12-17] MEDS ORDERED: KETOROLAC TROMETHAMINE 30 MG/1 ML VIAL IM ONE (11:22)
[2021-12-17] MEDS ORDERED: diazePAM 5 MG TABLET ONE (11:26)
[2021-12-17] MEDS ORDERED: KETOROLAC TROMETHAMINE 30 MG/1 ML VIAL ONE (11:26)
[2021-12-17 11:48] LABS: EOS % 5.1 % (0-4.5); HEMATOCRIT 39.7 % (32.4-45.2); LYMPH % 35.8 % (8-40); MCH 25.2 pg (25.7-33.7); MCHC 32.8 g/dl (32.0-36.0); MEAN CELL VOLUME 76.8 fl (80-96); MEAN PLT VOLUME 9.9 fl (7.5-11.1); MONO % 5.8 % (3.8-10.2); NEUT % 52.3 % (42.8-82.8); PLATELET COUNT 251 10^3/uL (134-434); RBC 5.16 M/mm3 (3.60-5.2); RDW 14.6 % (11.6-15.6); WHITE BLOOD COUNT 7.6 K/mm3 (4.0-10.0)
[2021-12-17 12:10] LABS: ALBUMIN 3.8 g/dl (3.4-5.0); CALCIUM 9.1 mg/dL (8.5-10.1)
[2021-12-17 13:05] LABS: BILIRUBIN,TOTAL 0.2 mg/dL (0.2-1); TOT PROT 7.9 g/dl (6.4-8.2)
[2021-12-17 13:07] LABS: CREATININE 0.5 mg/dL (0.55-1.3)
== END 2021-12-17 14:02 | disposition home or self-care (01) ==
LOC: JERFT 09:58
PROC: 3E0233Z Introduction of Anti-inflammatory into Muscle, Percutaneous Approach (ICD-10-PCS; principal; 2021-12-17)
DX: M54.32 Sciatica, left side (principal)
CPT/HCPCS: 36415; 80053; 85025; 99284-25

== ENCOUNTER 2023-08-29 16:16 | Emergency (ER) | payer OTHER ==
[2023-08-29 16:31] VITALS: BP 106/70; PULSE 88; RESP 18; TEMP 98.8; BMI 26.2
[2023-08-29] MEDS ORDERED: IBUPROFEN 600 MG TABLET (FP) PO ONE (16:48)
[2023-08-29] MEDS ORDERED: DEXAMETHASONE SOD PHOSPHATE 10 MG/1 ML VIAL ONE (16:48)
[2023-08-29] MEDS: DEXAMETHASONE SOD PHOSPHATE 10 MG/1 ML VIAL PO ONE (16:49)
[2023-08-29] MEDS: IBUPROFEN 600 MG TABLET (FP) PO ONE (16:50)
[2023-08-29 18:00] LABS: THROAT:GRP A STREP DETECTED (NOTDETECTED)
== END 2023-08-29 16:57 | disposition home or self-care (01) ==
LOC: JERFT 16:16
DX: R09.81 Nasal congestion (principal); R05.9 Cough, unspecified; R07.0 Pain in throat; H92.01 Otalgia, right ear; B34.9 Viral infection, unspecified
CPT/HCPCS: 0241U-QW; 87651; 99283-25; J1100

== ENCOUNTER 2023-11-13 09:54 | Emergency (ER) | payer OTHER ==
[2023-11-13 10:18] VITALS: BP 108/66; PULSE 81; RESP 18; TEMP 98.5; BMI 27.9
[2023-11-13] MEDS: ACETAMINOPHEN 325 MG TABLET (FP) PO ONE (11:26)
[2023-11-13] MEDS ORDERED: ACETAMINOPHEN 325 MG TABLET (FP) ONE (11:26)
[2023-11-13 11:48] LABS: EPI CELLS 9 /uL (0-25.1); HYALINE CASTS 0 /uL (0-3.1); PH,URINE 5.5 (5.0-8.0); URINE APPEARANCE CLEAR; URINE BACTERIA >9,000 /uL (0-1359); URINE BILIRUBIN NEGATIVE (NEGATIVE); URINE COLOR YELLOW; URINE GLUCOSE (UA) NEGATIVE (NEGATIVE); URINE KETONE NEGATIVE (NEGATIVE); URINE LEUK ESTERASE NEGATIVE (NEGATIVE); URINE NITRITE POSITIVE (NEGATIVE); URINE PROTEIN NEGATIVE (NEGATIVE); URINE RBC 9 /uL (0-23.9); URINE UROBILINOGEN 0.2 mg/dL (0.2-1.0); URINE WBC 12 /uL (0-25.8)
[2023-11-13 13:11] LABS: HCG,QUALITATIVE URINE Positive
[2023-11-13] MEDS ORDERED: PENICILLIN G BENZATHINE 1,200,000 UNIT/2 ML PFS IM ONE (13:29)
[2023-11-13] MEDS: NITROFURANTOIN MONOHYD/M-CRYST 100 MG CAPSULE PO ONE (13:30)
[2023-11-13] MEDS: PENICILLIN G BENZATHINE 1,200,000 UNIT/2 ML PFS IM ONE (13:30)
[2023-11-13] MEDS ORDERED: NITROFURANTOIN MACROCRYSTAL 50 MG CAPSULE (FP) ONE (13:30)
== END 2023-11-13 15:38 | disposition home or self-care (01) ==
LOC: JERFT 09:54 → JER 09:54 → JERFT 15:38
DX: R50.9 Fever, unspecified (principal); R52 Pain, unspecified; J02.0 Streptococcal pharyngitis; R09.81 Nasal congestion; R05.9 Cough, unspecified; R51.9 Headache, unspecified; R53.1 Weakness; R10.30 Lower abdominal pain, unspecified; N39.0 Urinary tract infection, site not specified; Z20.822 Contact with and (suspected) exposure to COVID-19
CPT/HCPCS: 0241U-QW; 76817-TC; 81003; 84703; 87086; 87186; 87651; 99284-25

== ENCOUNTER 2024-01-19 06:39 | Emergency (ER) | payer OTHER ==
[2024-01-19 06:47] VITALS: RESP 18; BMI 29.1
[2024-01-19 08:13] LABS: EPI CELLS 14 /uL (0-25.1); HYALINE CASTS 1 /uL (0-3.1); PH,URINE 5.5 (5.0-8.0); URINE APPEARANCE CLOUDY; URINE BACTERIA 70 /uL (0-1359); URINE BILIRUBIN NEGATIVE (NEGATIVE); URINE COLOR YELLOW; URINE GLUCOSE (UA) NEGATIVE (NEGATIVE); URINE KETONE TRACE (NEGATIVE); URINE LEUK ESTERASE 2+ (NEGATIVE); URINE NITRITE NEGATIVE (NEGATIVE); URINE PROTEIN 1+ (NEGATIVE); URINE WBC 7202 /uL (0-25.8)
[2024-01-19 08:26] LABS: URINE RBC 129.3 /uL (0-23.9); YEAST NEGATIVE (NEGATIVE)
[2024-01-19 08:30] LABS: HCG,QUALITATIVE URINE Positive
[2024-01-19] MEDS ORDERED: ACETAMINOPHEN INJECTION 100 ML IVPB ONE (08:47)
[2024-01-19] MEDS: SODIUM CHLORIDE 1,000 ML IV STA (09:00)
[2024-01-19] MEDS: ACETAMINOPHEN 1000 MG/100 ML BAG IVPB ONE (09:01)
[2024-01-19 09:13] LABS: BASO % 0.2 % (0-2.0); EOS % 3.4 % (0-4.5); HEMATOCRIT 32.4 % (32.4-45.2); HEMOGLOBIN 10.7 GM/dL (10.7-15.3); LYMPH % 20.3 % (8-40); MCH 25.7 pg (25.7-33.7); MEAN CELL VOLUME 77.6 fl (80-96); MEAN PLT VOLUME 9.5 fl (7.5-11.1); MONO % 4.3 % (3.8-10.2); NEUT % 71.8 % (42.8-82.8); PLATELET COUNT 202 10^3/uL (134-434); RBC 4.18 M/mm3 (3.60-5.2); RDW 15.9 % (11.6-15.6); WHITE BLOOD COUNT 10.8 K/mm3 (4.0-10.0)
[2024-01-19 09:37] LABS: POTASSIUM 4.4 mmol/L (3.5-5.1)
[2024-01-19 09:41] LABS: CALCIUM 8.7 mg/dL (8.5-10.1)
[2024-01-19 09:42] LABS: ALBUMIN 2.6 g/dl (3.4-5.0); BLOOD UREA NITROGEN 13.1 mg/dL (7-18)
[2024-01-19 09:44] LABS: CREATININE 0.5 mg/dL (0.55-1.3)
[2024-01-19 09:46] LABS: BILIRUBIN,TOTAL 0.1 mg/dL (0.2-1)
[2024-01-19] MEDS ORDERED: CEPHALEXIN MONOHYDRATE 500 MG CAPSULE (UD) ONE (11:01)
[2024-01-19] MEDS: CEPHALEXIN MONOHYDRATE 500 MG CAPSULE (UD) PO ONE (11:05)
[2024-01-19 11:55] VITALS: BP 110/70; PULSE 84; TEMP 98.1
== END 2024-01-19 11:55 | disposition home or self-care (01) ==
LOC: JER 06:39
PROC: 3E033NZ Introduction of Analgesics, Hypnotics, Sedatives into Peripheral Vein, Percutaneous Approach (ICD-10-PCS; principal; 2024-01-19)
PROC: 3E0337Z Introduction of Electrolytic and Water Balance Substance into Peripheral Vein, Percutaneous Approach (ICD-10-PCS; 2024-01-19)
DX: O23.42 Unspecified infection of urinary tract in pregnancy, second trimester (principal); O26.892 Other specified pregnancy related conditions, second trimester; R10.30 Lower abdominal pain, unspecified; Z3A.17 17 weeks gestation of pregnancy
CPT/HCPCS: 36415; 80053; 81003; 84703; 85025; 87086; 99284-25; J0131

== ENCOUNTER 2024-05-26 05:55 | Inpatient (IN) | payer OTHER ==
[2024-05-26] MEDS: ELECTROLYTE-148 SOLN 500 ML IV SCH (06:15)
[2024-05-26] MEDS: ELECTROLYTE-148 SOLN 1,000 ML IV SCH (06:45)
[2024-05-26 06:48] VITALS: BMI 35.7
[2024-05-26] MEDS ORDERED: ACETAMINOPHEN 325 MG TABLET (FP) PO PRN (07:27)
[2024-05-26] MEDS ORDERED: ONDANSETRON 4 MG/2 ML VIAL IVPUSH PRN (07:27)
[2024-05-26] MEDS ORDERED: IBUPROFEN 600 MG TABLET (FP) PO PRN ×2 (07:27→07:42)
[2024-05-26] MEDS: CITRIC ACID/SODIUM CITRATE 30 ML UNIT-DOSE CUP PO ONE (07:55)
[2024-05-26] MEDS ORDERED: morphine SULFATE (PF) 1 MG/2 ML SYRINGE ONE (08:31)
[2024-05-26] MEDS ORDERED: FENTANYL CITRATE/PF 50 MCG/ML VIAL ONE (08:31)
[2024-05-26] MEDS ORDERED: ceFAZolin SODIUM 1 GM VIAL ONE ×2 (08:33)
[2024-05-26] MEDS ORDERED: DEXAMETHASONE SOD PHOSPHATE 4 MG/1 ML VIAL ONE (08:33)
[2024-05-26] MEDS ORDERED: OXYTOCIN 10 UNITS/ML VIAL ONE (08:33)
[2024-05-26] MEDS ORDERED: ONDANSETRON 4 MG/2 ML VIAL ONE ×2 (08:33)
[2024-05-26] MEDS ORDERED: KETOROLAC TROMETHAMINE 30 MG/1 ML VIAL ONE (08:33)
[2024-05-26] MEDS ORDERED: ELECTROLYTE-148 SOLN 500 ML IV ONE (08:44)
[2024-05-26] MEDS ORDERED: ACETAMINOPHEN INJECTION 100 ML ONE ×2 (09:13→15:03)
[2024-05-26] MEDS ORDERED: ONDANSETRON 4 MG/2 ML VIAL IVPB PRN (10:56)
[2024-05-26] MEDS: OXYTOCIN 20 UNITS in 0.9% NS 20 UNIT/1,000 ML INFUS.BAG IV SCH (12:10)
[2024-05-26] MEDS: METHYLERGONOVINE MALEATE 0.2 MG/1 ML AMP IM ONE ×2 (12:30→14:35)
[2024-05-26] MEDS ORDERED: TRANEXAMIC ACID 1000 MG/10 ML VIAL ONE (13:25)
[2024-05-26] MEDS: TRANEXAMIC ACID 1000 MG/10 ML VIAL IVPB ONE (13:40)
[2024-05-26] MEDS: ACETAMINOPHEN 1000 MG/100 ML BAG IVPB PRN (15:05)
[2024-05-26] MEDS: CEFAZOLIN 2 GM/D5W 2 GM/50 ML ML IVPB SCH (18:18)
[2024-05-26] MEDS: IBUPROFEN 800 MG/8 ML IJ IVPB PRN (19:41)
[2024-05-26] MEDS: SIMETHICONE 80 MG TAB.CHEW (FP) PO PRN (21:22)
[2024-05-26] MEDS: SENNOSIDES/DOCUSATE COMBO (SENNA PLUS) TABLET (UD) PO SCH (21:22)
[2024-05-27 08:08] LABS: BASO % 0.5 % (0-2.0); EOS % 1.4 % (0-4.5); HEMATOCRIT 20.5 % (32.4-45.2); LYMPH % 20.7 % (8-40); MCH 23.5 pg (25.7-33.7); MCHC 31.8 g/dl (32.0-36.0); MEAN CELL VOLUME 73.9 fl (80-96); MEAN PLT VOLUME 9.3 fl (7.5-11.1); MONO % 6.7 % (3.8-10.2); NEUT % 70.7 % (42.8-82.8); PLATELET COUNT 171 10^3/uL (134-434); RBC 2.78 M/mm3 (3.60-5.2); RDW 30.8 % (11.6-15.6); WHITE BLOOD COUNT 8.4 K/mm3 (4.0-10.0)
[2024-05-27 08:16] LABS: HEMOGLOBIN 6.5 GM/dL (10.7-15.3)
[2024-05-27] MEDS ORDERED: IRON SUCROSE INJECTION 200 MG in SODIUM CHLORIDE 100 ML IVPB ONE (10:00)
[2024-05-27] MEDS ORDERED: BISACODYL 10 MG SUPP.RECT RC PRN (10:56)
[2024-05-27] MEDS: DIPHTH,PERTUSS(ACELL),TET 0.5 ML DISP.SYRIN IM ONE (11:32)
[2024-05-27] MEDS: IBUPROFEN 600 MG TABLET (FP) PO PRN (11:33)
[2024-05-27 21:42] LABS: BASO % 0.5 % (0-2.0); EOS % 1.7 % (0-4.5); HEMOGLOBIN 8.5 GM/dL (10.7-15.3); LYMPH % 21.9 % (8-40); MCH 25.2 pg (25.7-33.7); MCHC 32.8 g/dl (32.0-36.0); MEAN CELL VOLUME 76.8 fl (80-96); MEAN PLT VOLUME 9.2 fl (7.5-11.1); MONO % 7.2 % (3.8-10.2); NEUT % 68.7 % (42.8-82.8); PLATELET COUNT 190 10^3/uL (134-434); RBC 3.38 M/mm3 (3.60-5.2); RDW 29.8 % (11.6-15.6)
[2024-05-27 22:22] LABS: ANISOCYTOSIS 3+; MACROCYTOSIS 1+
[2024-05-27] MEDS: ACETAMINOPHEN 325 MG TABLET (FP) PO PRN (22:32)
[2024-05-27] MEDS: oxyCODONE HCL 5 MG TABLET PO PRN (23:50)
[2024-05-28] MEDS: FLU VACCINE (FLULAVAL) PF 45 MCG/0.5 ML SYRINGE 2024-2025 IM ONE (09:37)
[2024-05-29] MEDS ORDERED: ACETAMINOPHEN 325 MG TABLET (FP) PO PRN (13:57)
[2024-05-29] MEDS: ACETAMINOPHEN 500 MG TABLET (FP) PO PRN (17:16)
[2024-05-29] MEDS: HYDROCORTISONE 1% TOPICAL CREAM 30 GM TUBE TP PRN (18:27)
[2024-05-29] MEDS: oxyCODONE HCL 5 MG TABLET PO PRN (22:04)
[2024-05-30] MEDS: oxyCODONE HCL 5 MG TABLET PO PRN (04:10)
[2024-05-30] MEDS: IBUPROFEN 600 MG TABLET (FP) PO PRN (08:13)
[2024-05-30] MEDS: ENOXAPARIN NA (PORCINE) 40 MG/0.4 ML DISP.SYRIN SQ SCH (17:15)
[2024-05-30 18:07] LABS: BASO % 0.3 % (0-2.0); EOS % 4.1 % (0-4.5); HEMATOCRIT 27.5 % (32.4-45.2); HEMOGLOBIN 8.8 GM/dL (10.7-15.3); LYMPH % 23.3 % (8-40); MCH 25.4 pg (25.7-33.7); MEAN CELL VOLUME 79.5 fl (80-96); MONO % 6.7 % (3.8-10.2); NEUT % 65.6 % (42.8-82.8); PLATELET COUNT 263 10^3/uL (134-434); RBC 3.46 M/mm3 (3.60-5.2); RDW 30.2 % (11.6-15.6); WHITE BLOOD COUNT 7.5 K/mm3 (4.0-10.0)
[2024-05-30 18:10] LABS: ADD RBC MORPHOLOGY YES
[2024-05-30 22:51] VITALS: RESP 18; TEMP 98.2
[2024-05-31] MEDS: MAGNESIUM OXIDE 400 MG TABLET (FP) PO SCH (11:52)
[2024-05-31 12:06] VITALS: BP 145/67; PULSE 95
== END 2024-05-31 20:05 | disposition home or self-care (01) | DRG 540 ==
LOC: JLDR 05:55 → J3W 15:20
PROVIDERS: ADMIT Specialist; ATTEND Specialist
PROC: 10D00Z1 Extraction of Products of Conception, Low, Open Approach (ICD-10-PCS; principal; 2024-05-26)
PROC: 0JNC0ZZ Release Pelvic Region Subcutaneous Tissue and Fascia, Open Approach (ICD-10-PCS; 2024-05-26)
PROC: 30233N1 Transfusion of Nonautologous Red Blood Cells into Peripheral Vein, Percutaneous Approach (ICD-10-PCS; 2024-05-27)
DX: O14.94 Unspecified pre-eclampsia, complicating childbirth (principal); O60.14X0 Preterm labor third trimester with preterm delivery third trimester, not applicable or unspecified; O40.3XX0 Polyhydramnios, third trimester, not applicable or unspecified; O99.214 Obesity complicating childbirth; D62 Acute posthemorrhagic anemia; O24.424 Gestational diabetes mellitus in childbirth, insulin controlled; O34.13 Maternal care for benign tumor of corpus uteri, third trimester; O99.013 Anemia complicating pregnancy, third trimester; Z3A.35 35 weeks gestation of pregnancy; Z37.0 Single live birth; O34.211 Maternal care for low transverse scar from previous cesarean delivery; N85.8 Other specified noninflammatory disorders of uterus; O99.892 Other specified diseases and conditions complicating childbirth; N73.6 Female pelvic peritoneal adhesions (postinfective); L25.9 Unspecified contact dermatitis, unspecified cause
CPT/HCPCS: 36415; 36430; 59409; 82962; 85025; 86850; 86900; 86901; 86922; 88307-TC; 90656; 90715; 93970-TC; G0008; J0131; P9058

== ENCOUNTER 2025-03-09 23:50 | Emergency (ER) | payer OTHER ==
[2025-03-10 00:03] VITALS: BMI 29.9
[2025-03-10] MEDS ORDERED: ACETAMINOPHEN 325 MG TABLET (FP) ONE (00:27)
[2025-03-10] MEDS ORDERED: diphenhydrAMINE HCL 25 MG CAPSULE (FP) PO ONE (00:27)
[2025-03-10] MEDS: ACETAMINOPHEN 500 MG TABLET (FP) PO ONE (00:30)
[2025-03-10] MEDS: diphenhydrAMINE HCL 25 MG CAPSULE (FP) PO ONE (00:30)
[2025-03-10 02:00] VITALS: BP 124/64; PULSE 78; RESP 12; TEMP 97.5
== END 2025-03-10 02:15 | disposition home or self-care (01) ==
LOC: JER 23:50
DX: R07.9 Chest pain, unspecified (principal); R06.02 Shortness of breath; M79.645 Pain in left finger(s); T63.441A Toxic effect of venom of bees, accidental (unintentional), initial encounter; X58.XXXA Exposure to other specified factors, initial encounter
CPT/HCPCS: 93005; 93010; 99283-25